=== PATIENT | male | born 2000 | race Caucasian/White ===

== ENCOUNTER 2024-05-26 19:53 | Emergency (ER) | payer MEDICAID, SELFPAY ==
[2024-05-26 20:22] VITALS: BP 112/73; PULSE 71; RESP 18; TEMP 36.2; O2SAT 97; BMI 24.6
--- NOTE | 2024-05-26 20:25 | CRLHL7_ITS ---
For Patients: As a result of the Century Cures Act, medical imaging exams and procedure reports are released immediately into your electronic medical record. You may view this report before your referring provider. If you have questions, please contact your health care provider. INDICATION: Patient ate a sock. COMPARISON: CT scan 08/14/2018. FINDINGS: There are numerous air distended loops of small bowel throughout the abdomen and pelvis. There is some air within the colon and rectum. These findings are consistent an incomplete small bowel obstruction. There is no free air under the diaphragm. The visualized lung bases are clear. There is a ventriculoperitoneal shunt tube in place. IMPRESSION: There is likely an incomplete small bowel obstruction. Dictated by Emmett Morgan MD @ 05/26/2024 9:28:44 PM (Electronically Signed)
--- NOTE | 2024-05-26 20:42 | ED_ITS ---
HPI - General Adult General Time Seen by Provider: 20:42 Date Seen: 05/26/24 Chief complaint: Unspecified Complaint, Adult Stated complaint: possibly swallowed part of sock Time Seen by Provider: 05/26/24 20:33 Source: patient, RN notes reviewed and old records reviewed Mode of arrival: ambulatory Limitations: no limitations History of Present Illness HPI narrative: 24-year-old male with developmental delay, presents today with diarrhea and concern for ingestion. Patient has been known the threads of his socks. Today has had watery stools with threads in it, abdominal distension although that is improving. No vomiting, patient did eat dinner tonight without problems. No fever, no change in behavior otherwise. PFSH PFSH Social History Smoking Status: Never smoker Do you use any of these nicotine containing products: None How often do you have a drink containing alcohol: never AUDIT-C Alcohol total score: 0 Non-prescribed substance use: denies use service: No Exam Narrative: Exam Narrative: General: Well-developed and well-nourished, no acute distress Head: Atraumatic and normocephalic Eyes: Pupils are equal reactive, extraocular motions intact, conjunctiva clear ENT: External nose and ears are normal, posterior pharynx without erythema or exudate Neck: No midline cervical tenderness, full spontaneous range of motion the neck, trachea midline, no adenopathy Heart: Regular rate and rhythm no murmurs or thrills Lungs: Clear to auscultation bilaterally without wheezes or crackles Abdomen: Soft, nontender, mild distention, active bowel sounds, numerous scars Musculoskeletal: No tenderness, deformity, or edema Neurologic: Awake, alert,, no gross focal neurologic deficits, cranial nerves intact as tested Psych: Mood and affect are appropriate Skin: No rashes Const: Vital Signs, click to edit/add: Vital Signs - 24 hr 05/26/24 20:22 Temperature 97.2 F L Pulse Rate [Right Pulse Oximeter] 71 Respiratory Rate 18 Blood Pressure [Ri ght Upper Arm] 112/73 Pulse Oximetry 97 Oxygen Delivery Me thod Room Air Course Course ED Course: Patient seen and examined. Concern for possible ingested foreign body based on diarrhea and visible strings in stool. On exam, patient appears comfortable, no abdominal tenderness, no vomiting and ate shortly prior to coming the emergency department. No clinical evidence for obstruction, tolerating oral intake. X- ray ordered to evaluate for obstruction, this is clinically unlikely and if x- rays negative, anticipatory guidance given. Reevaluation(s) Time of Reevaluation #1: 21:03 Reevaluation #1: Abdominal x-ray independently interpreted by me with what appears to be an obstructive gas pattern. Labs and CT scan are ordered to further evaluate cause obstruction given multiple abdominal surgeries in the past. Time of Reevaluation #2: 21:56 Reevaluation #2: Reviewed radiology interpretation of CT scan which does demonstrate small- bowel obstruction but no definite transition point, however notes that loops of the SEWER AND DRAIN TECHNICIAN shunt are wrapped around multiple loops of small bowel left upper quadrant which are concerning for cause for mechanical obstruction. Due to possible complication with the SEWER AND DRAIN TECHNICIAN shunt, patient will need to be transferred for further evaluation and treatment Time of Reevaluation #3: 22:30 Reevaluation #3: Care discussed with [facility] transfer [facility], initial discussion of transfer to [facility] due to no beds at [facility]. Discussed with Dr. Banegas, neurosurgery, feels this patient cannot be appropriately taken care of at [facility] and needs to go to [facility]. Additional Reevaluation(s): 23:[address] Morrison, hospitalist at [facility] who accepts patient but does request general surgery consult. Vital Signs Vital signs: Initial Vital Signs Temperature 97.2 F L 05/26/24 20:22 Temperature Source Temporal Artery Scan 05/26/24 20:22 Pulse Rate 71 05/26/24 20:22 Pulse Rhythm Regular 05/26/24 20:22 Respiratory Rate 18 05/26/24 20:22 Blood Pressure 112/73 05/26/24 20:22 Blood Pressure Mean 86 05/26/24 20:22 Blood Pressure Position Sitting 05/26/24 20:22 Pulse Oximetry 97 05/26/24 20:22 Oxygen Delivery Method Room Air 05/26/24 20:22 Vital Signs Temperature 97.2 F L 05/26/24 20:22 Pulse Rate 71 05/26/24 20:22 Respiratory Rate 18 05/26/24 20:22 Blood Pressure 112/73 05/26/24 20:22 Pulse Oximetry 97 05/26/24 20:22 Oxygen Delivery Method Room Air 05/26/24 20:22 Temperature 97.2 F L 05/26/24 20:22 Pulse Rate 71 05/26/24 20:22 Respiratory Rate 18 05/26/24 20:22 Blood Pressure 112/73 05/26/24 20:22 Pulse Oximetry 97 05/26/24 20:22 Oxygen Delivery Method Room Air 05/26/24 20:22 Discharge Plan Discharge Clinical Impression: Suspected ingested foreign body not found after observation, SBO (small bowel obstruction), SEWER AND DRAIN TECHNICIAN (ventriculoperitoneal) shunt status Follow Up/Referrals: Joshua Wilde MD [Primary Care Provider] -
--- OUTSIDE RECORDS SUMMARY | 2024-05-26 21:00 | XMS_ITS | Clinical Summary ---
Author Organization [employer] [facility] Address [place], [place] [address] Care Team Providers Care Pattern Chain Builder Name Role Phone Joshua Wilde MD Primary Care Provider Allergies Active Allergy Reactions Criticality Noted Date Comments Lorazepam *Unknown,Agitation 09/12/2016 Other reaction(s): Other (see comments) Opposite reaction Brompheniramine-Codeine Other - Describe In Comment Field 02/13/2012 Opposite reaction Codeine Anxiety 12/16/2010 Haloperidol *Unknown 09/12/2016 Other reaction(s): Other (see comments) Opposite reaction Morphine Hives 12/16/2010 Sulfate Salt *Unknown 01/20/2017 Other reaction(s): Other (see comments) Opposite reaction Midazolam *Unknown 01/20/2017 Other reaction(s): extreme agitation Other reaction(s): Other (see comments) Opposite reaction Medications Medication Sig Dispensed Refills Start Date End Date Status Diazepam (DIASTAT ACUDIAL) 12.5-15-17.5-20 mg kitIndications:Sei zure disorder (HC) Insert 20 mg rectally one time if needed for Seizures. 1 Kit 2 0 Active levOCARNitine (CARNITOR) 330 mg tablet 2 Active lamoTRIgine (LAMICTAL) 100 mg tablet Take 1 Tablet by mouth in the morning and 1 Tablet in the evening. 2 Active lamoTRIgine (LAMICTAL) 25 mg tablet Take 1 Tablet by mouth in the morning and 1 Tablet in the evening. 2 Active loperamide (IMODIUM) 2 mg tablet Take 1-2 Tablets by mouth 4 times daily if needed. Active milk of magnesia (MOM) 400 mg/5 mL suspension Take 60 mL by mouth once daily if needed. Active ondansetron (ZOFRAN ODT) [address] 1 Tablet on the tongue 3 times daily if needed. Active ibuprofen (ADVIL; MOTRIN) 200 mg tablet Take 1-2 Tablets by mouth every 4 hours if needed. Active sodium fluoride dental 1.1 % gel 2 Active bisacodyL (DULCOLAX) 10 mg suppositoryIndicat ions:Chronic constipation INSERT 1 SUPPOSITORY PER RECTUM EVERY 4 DAYS NEEDED 24 Suppository 2 2 Active divalproex (DEPAKOTE) 125 mg Delayed-Release tabletIndications: Irritability Take 7 tablets twice daily 0 3 Active triamcinolone (ARISTOCORT; KENALOG) 0.1 % creamIndications:K eratoderma Apply a thin layer to the feet twice daily on the weekends, Monday and monday 80 g 4 Active eszopiclone (LUNESTA) 3 mg tabletIndications: Insomnia, unspecified type Take 1 Tablet (3 mg) by mouth at bedtime. 30 Tablet 5 4 Active glycopyrrolate (ROBINUL) 1 mg tabletIndications: Sialorrhea Take 1 Tablet (1 mg) by mouth three times daily. 90 Tablet 5 4 Active propranoloL (INDERAL) 40 mg tabletIndications: Impulse control disorder in adult Take 2.5 Tablets (100 mg) by mouth three times daily. 225 Tablet 5 4 Active risperiDONE (RISPERDAL) 0.25 mg tabletIndications: Impulse control disorder in adult TAKE 1 TABLET BY MOUTH EVERY MORNING ALONG WITH 1MG TO =1.25MG;TAKE 2 TABLETS BY MOUTH DAILY IN AFTERNOON ALONG WITH 1MG TO = 1.50MG 90 Tablet 5 4 Active risperiDONE (RISPERDAL) 1 mg tabletIndications: Impulse control disorder in adult Take 1 Tablet (1 mg) by mouth three times daily. 90 Tablet 5 4 Active emollient (Eucerin Advanced Repair Foot) cream Apply topically to affected area(s) once daily if needed for Dry Skin. Active selenium sulfide (Anti-Dandruff) 1 % Apply topically to affected area(s) once daily. Head and Shoulders shampoo: Every week once a day on Monday, Monday and Monday Active acetaminophen (TYLENOL EXTRA STRGTH) 500 mg tablet Take 1,000 mg by mouth every 6 hours if needed. Cold/discomfort from colds/sore throat. Give 2 tablets q 6 hoursprn for fever or discomfort. Max acetaminophen dose: 3000mg in 24 hrs. Active menthol (COUGH DROPS MM) Apply to the lining of the mouth every 2 hours if needed. colds/discomfort from colds/sore throat for cough or sore throat. Active diazePAM CONCENTRATE (DIAZEPAM INTENSOL) 5 mg/mL solution Take 5 mg by mouth every 8 hours if needed. this medication is given at the work program only per guardians request!!!!!! Give 2 ml (10 mg) inside cheek for seizure lasting longer than 3 minutes or for cluster of seizures - may repeat once after 10 minutes if needed, max 4 ml per 24 hours. Active ibuprofen (ADVIL; MOTRIN) 600 mg tabletIndications: Pain, dental Take 1 Tablet (600 mg) by mouth every 6 hours if needed for Pain for up to 20 doses. Maximum of 3200 mg in 24 hours. 20 Tablet 4 Active ALPRAZolam (XANAX) 1 mg tabletIndications: Anxiety TAKE UP TO 2 TABS BY MOUTH ONCE DAILY NEEDED PRIOR TO DENTAL PROCEDURES 2 Tablet 2 4 Active risperiDONE (RISPERDAL) 0.25 mg tabletIndications: Impulse control disorder in adult TAKE 1 TABLET BY MOUTH EVERY MORNING ALONG WITH 1MG TO =1.25MG;TAKE 2 TABLETS BY MOUTH DAILY IN AFTERNOON ALONG WITH 1MG TO = 1.50MG 90 Tablet 5 3 Discontinu ed(Reorder (E-cancel not sent)) Active Problems Problem Noted Date Diagnosed Date Sialorrhea 01/31/2024 Impulse control disorder in adult 01/31/2024 Atopic dermatitis 01/27/2023 Overview (01/27/2023): followed by Derm Hyponatremia 03/10/2021 Hydrocephalus 01/06/2021 Insomnia 05/04/2017 Seizure disorder 05/20/2011 ADHD (attention deficit hyperactivity disorder) 05/20/2011 Autism spectrum disorder 05/20/2011 Resolved Problems Problem Noted Date Diagnosed Date Resolved Date Impulse control disorder 06/12/201812/2023 Behavioral and emotional dis order with onset in childhood 12/14/2016 01/31/2024 Encounters Date Type Department Care Team Description 05/06/2024 Refill [facility] [address] [place] [address] Aaliyah Bonilla PA Refill Request (Triamcinolon) 04/24/2024 Refill [facility] [address] [place] [address] Aaliyah Bonilla PA Refill Request (Triamcinolon 0.1 PCT cre) 04/16/2024 Refill [facility] [address] [place] [address] Aaliyah Bonilla PA Refill Request (Triamcinolon 0.1) 03/12/2024 Refill [facility] [address] [place] [address] Joshua Wilde MD Refill Request (Alprazolam) 03/11/2024 7:40 AM CDT Anesthesia Event [address] [address] Cathy Sparrow CRNA Davis, Leigh Ann, CRNA 03/11/2024 7:30 AM CDT - 03/11/2024 11:45 AM CDT Surgery [address] [address] Aubrie Arevalo DDS COMPREHENSIVE EXAM, FULL MOUTH RADS, DENTAL CLEANING, RESTORATIVE WORK, 10 FILLINGS, AND 1 EXTRACTION 03/11/2024 6:56 AM CDT - 03/11/2024 1:00 PM CDT Hospital Encounter [facility] [address] [place] [address] Aubrie Arevalo DDS Pain, dental (Primary Dx) Discharge Disposition: Home Self Care 03/11/2024 Travel 03/06/2024 Telephone [facility] [address] [place] [address] Joshua Wilde MD Medication Management 03/05/2024 Telephone [facility] [address] [place] [address] Joshua Wilde MD Questions from Last 3 Months Immunizations Name Administration Dates Next Due COVID-19 vaccine (Moderna 100mcg/0.5mL) PF, MDV 08/19/2020,07/22/2020 DTaP 05/05/2003, 0,03/11/1999,10/23 DTaP-HIB (TriHIBIT) 06/16/1999 HIB HbOC (HibTITER) 06/16/1999,03/11/1999,1998 HIB PRP-T (ActHIB,Hiberix) 03/11/1999,1998 Hepatitis A (Peds) 11/05/2009,03/23/2009 Hepatitis B (Peds) 06/16/1999,03/11/1999, 999 Hib Conjugate, Unspecified 03/11/1999,1998 Inactivated Polio Vaccine 05/05/2003,,03/11/1999,10/23 Influenza A (H1N1), Inactivated 04/28/2009 Influenza Virus, Unspecified 04/19/2011,05/03/20 10 Influenza, IIV3 (Age >=3 years) 07/02/19 13,03/23/2009,04/04/2008,04/11,07/18/2006,05/05/2003 Influenza, IIV4 04/16/2018 Influenza, IIV4 (=>6mos) MDV 03/30/2020,05/08/20 19,03/29/2017 MMR 05/05/2003,09/11/1999 Meningococcal Vaccine 12/03/2014,03/23/2009 Polio Virus, Unspecified 03/13/2000,03/11/1999,0 1998 Rotavirus Pentavalent (ROTATEQ) 1998 Tdap 01/01/2020,03/23/2009 Varicella Vaccine 04/10/2006,09/11/1999 Family History Medical History Relation Name Comments Alcoholism Father Diabetes type II Father Anesthesia Problem Mother slow to c ome out of anesthesia Cancer-colon No Family History Cancer-prostate No Family History Heart Disease No Family History Relation Name Status Comments Father Mother Social History Tobacco Use Types Packs/Day Years Used Date Smoking Tobacco: Never Smokeless Tobacco: Never Tobacco Cessation:Counseling Given: No Comments:no passive exposure Alcohol Use Standard Drinks/Week Comments No 0 (1 standard drink = 0.6 oz pur e alcohol) PHQ-2 Answer Date Recorded PHQ-2 TOTAL SCORE 0 07/26/2023 Social Connections Answer Date Recorded Frequency of Communication with Friends and Fami ly Not on file 10/19/2022 Financial Resource Strain Answer Date R ecorded Difficulty of Paying Living Expenses 3 10/14/2021 Difficulty of Paying Living Expenses Not on file 10/14/2021 Food Insecurity Answer Date Recorded Worried About Running Out of Food in the Last Ye ar 1 10/14/2021 Transportation Needs Answer Date Record ed Lack of Transportation (Medical) 1 10/14/2021 Housing Stability Answer Date Recorded Unable to Pay for Housing in the Last Year 1 10/14/2021 Sex and Gender Information Value Date Recorded Sex Assigned at Not on file Gender Identity Not on file Sexual Orientation Not on file Obstetrics History Last Filed Vital Signs Vital Sign Reading Time Taken Comments Blood Pressure 136/71 03/11/2024 11:45 AM CDT Pulse 78 03/11/2024 11:45 AM CDT Temperature 36.7 C (98 F) 03/11/2024 11:15 AM CDT Respiratory Rate 18 03/11/2024 11:45 AM CDT Oxygen Saturation 98% 03/11/2024 11:45 AM CDT Inhaled Oxygen Concentration - - Weight 55.3 kg (122 lb) 03/11/2024 7:18 AM CDT Height 154.9 cm (5' 1) 03/11/2024 7:18 AM CDT Body Mass Index 23.05 03/11/2024 7:18 AM CDT Plan of Treatment Upcoming Encounters Date Type Department Care Team (Late st Contact Info) Description 06/27/2024 10:30 AM INSPECTOR RAG [employer]ORTING Office Visit [facility] [address] [place] [address] [place] [address] Aaliyah Bonilla PA [address] [place] [address] 08/07/2024 10:15 AM INSPECTOR [employer]AG [employer]ING Office Visit [facility] [address] [place] [address] Torie Gómez MD [address] [place] [address] Health Maintenance Due Date Last Done Comments HPV series for age 9-26 (1 - Male 3-dose series) 2013 COVID-19 vaccine series (2023- season) 2024 05/04/2023, 06/15/2022, 07/13/2021, Additional history exists Influenza for age 9-49 02/25/2024 , 05/08/2019, 04/16/2018, Additional history exists BMI (ht and wt on same day) for age 18+ 02/14/2025 02/15/2024, 02/06/2024, 01/27/2023, Additional history exists Tetanus booster 12/31/2029 01/01/2020, 03/23/2009 Tdap Completed 01/01/2020, 03/23/2009 HIV for age 15-65 Completed 02/01/2023 Hepatitis C screening for age 18-79 Completed 02/01/2023 Pneumococcal series for age 6-64 Aged Out No longer eligible based on patient's age to complete this topic Procedures Procedure Name Priority Date/Time Associated Diagnosis Comments ENDOTRACHEAL TUBE Routine 03/11/2024 8:0 7 AM CDT SYNAGOGUE DENTAL WITH XRAY 03/11/2024 7:40 AM CDT Dental disease Developmental disability LC HIV-1/O/2, 4TH GENERATION Routine 02/01/2023 11:40 AM CDT Screening for HIV (human immunodeficiency virus) LC HCV ANTIBODY RFX TO QUANT PCR Routine 02/01/2023 11:40 AM CDT Need for hepatitis C screening test from Last 3 Months or Most Recently Relevant to Health Maintenance Results * HCHG TUBE TRACH PR1 (03/11/2024 8:07 AM CDT) Narrative Cathy Sparrow CRNA - 03/11/2024 8:07 AM CDT Cathy Sparrow CRNA 03/11/2024 8:08 AM Procedure: ETT Patient location during procedure: OR ETT Properties Mask Ventilation: easy Final Technique: direct laryngoscopy Type: DARIO Location: left nare Cuffed: yes Tube Size: 6.0 mmno Laryngoscope Blade: Mac Blade Size: 3 Cormack-Lehane Grade View: 1 Insertion Attempts: 1 Placement Verification: auscultation and end tidal CO2 Assessment: pharynx clear Secured at: bend Difficulty: 0 (not difficult) Cathy Sparrow CRNA ANESTHESIA PX NOTE ORDERABLES * LC HCV ANTIBODY RFX TO QUANT PCR (02/01/2023 11:40 AM CDT) Pathologist [facility] HCV Ab Non Reactive Non Reactive 02/04/2023 7:17 AM CDT [facility]) Blood BLOOD SPECIMEN / Unknown Butterfly / Unknown 02/01/2023 11:40 AM CDT 02/01/2023 11:45 AM CDT Narrative [facility] ([facility] - 02/04/2023 7:17 AM CDT Performed at: [address] [place] [id number] Manager Mobility: Kevan Benitez MD, Phone: [phone] Joshua Wilde MD LABORATORY [facility] ([facility]) [address] [place] [address], * LC HIV-1/O/2, 4TH GENERATION (02/01/2023 11:40 AM CDT) Pathologist [facility] HIV Scr 4th Gen Non Reactive Non Reactive 02/04/2023 5:13 AM CDT [facility] Comment: HIV Negative HIV-1/HIV-2 antibodies and HIV-1 p24 antigen were NOT detected. There is no laboratory evidence of HIV infection. Blood BLOOD SPECIMEN / Unknown Butterfly / Unknown 02/01/2023 11:40 AM CDT 02/01/2023 11:45 AM CDT Narrative [facility] - 02/04/2023 5:13 AM CDT Performed at: [address] [id number] Manager Mobility: Kevan Benitez MD, Phone: [phone] Joshua Wilde MD LABORATORY [facility] ([facility]) [facility] [place], [place] [address] from Last 3 Months or Most Recently Relevant to Health Maintenance Advance Directives * Full Code (Latest Code Status on File) Date Activated Date Inactivated Comments 03/11/2024 7:17 AM 03/11/2024 4:14 PM Question Answer Comments Code Status Discussion: Reviewed Preferences Care Teams Pattern Chain Builder Relationship Specialty Start Date End Date Joshua Wilde MD [address] [place] [address] PCP - General Family Practice 12/16/16
--- NOTE | 2024-05-26 21:24 | CRLHL7_ITS ---
For Patients: As a result of the Century Cures Act, medical imaging exams and procedure reports are released immediately into your electronic medical record. You may view this report before your referring provider. If you have questions, please contact your health care provider. Indication: Concern for SBO on radiograph Technique: Noncontrast CT through the abdomen and pelvis with multiplanar reformats. Comparison: Send a radiograph, CT abdomen pelvis performed 08/14/2018 Findings: Examination is degraded by motion. Lower chest: No acute abnormality appreciated. Hepatobiliary: No significant parenchymal abnormality is appreciated. Spleen: Unremarkable. Pancreas: No acute abnormality appreciated. Adrenal glands: No acute abnormality appreciated. Kidneys: No significant parenchymal abnormality appreciated. No visualized calculi. No hydronephrosis. Bowel: Dilated loops of small bowel measure up to 4.8 centimeters suspicious for obstruction. Limited evaluation for transition point due to motion degradation and absence of contrast. There are loops of a FAT PURIFICATION WORKER shunt wrapped around multiple loops of small bowel in the left upper quadrant. Vascular: Poorly evaluated on this noncontrast examination. Lymph nodes: No gross lymphadenopathy. Peritoneum: FAT PURIFICATION WORKER shunt present. : No acute abnormality appreciated. Soft tissues: No acute abnormality appreciated. Postoperative changes. Bones: No acute fracture. No lytic or blastic lesion. Impression: Examination is degraded by motion and suboptimal due to the absence of IV contrast. There are dilated loops of small bowel measuring up to 4.8 centimeters suspicious for small bowel obstruction, but evaluation for a focal transition point is severely degraded. Note is made of loops of patient`s FAT PURIFICATION WORKER shunt wrapped around multiple loops of small bowel in the left upper quadrant which could be causing a mechanical obstruction. Please note that all CT scans at this facility use dose modulation, iterative reconstruction, and/or weight-based dosing when appropriate to reduce radiation dose to as low as reasonably achievable. Dictated by Jose Sands MD @ 05/26/2024 9:54:46 PM (Electronically Signed)
[2024-05-26 23:40] LABS: Chloride* 101 mmol/L (96-114); Potassium* 3.7 mmol/L (3.6-5.1); Sodium* 134 mmol/L (135-149)
[2024-05-26 23:42] LABS: Creatinine* 0.6 mg/dL (0.5-1.5); Est. Creatinine Clearance* 131.94; Estimated Glomerular Filt Rate 137 ml/min
[2024-05-26 23:43] LABS: Anion Gap 14 mEq/L (7-15); Blood Urea Nitrogen* 20 mg/dL (5-24); Calcium* 9.6 mg/dL (8.4-10.6); Carbon Dioxide* 19 mmol/L (20-32); Glucose* 113 mg/dL (60-115)
--- NOTE | 2024-05-27 01:32 | ED.NURSE ---
pt ambulated to restroom with mother.
[2024-05-27 02:00] VITALS: BP 141/83; PULSE 79; RESP 18; TEMP 37.2; O2SAT 99
--- NOTE | 2024-05-27 03:14 | ED.NURSE ---
Report given to Brandy Ko. Room will be ready by 7am. Ok to send then per RN.
--- NOTE | 2024-05-27 03:43 | ED.NURSE ---
mother and patient out of room to walk.
--- NOTE | 2024-05-27 04:21 | ED.NURSE ---
mother and son back in room
--- NOTE | 2024-05-27 06:16 | ED.NURSE ---
Report given to Brandy [facility] unit Room 4558. Paper sent with mother. Pt arriving to [facility] with mother via private vehicle. Information also given to DON [facility], Nancie Ruby Rn. She was informed that pt is being taken to [facility] unit 4500 room 4558.
[2024-05-27 06:30] VITALS: BP 139/89; PULSE 79; RESP 16; TEMP 36.6; O2SAT 97
--- NOTE | 2024-05-27 06:36 | ED.NURSE ---
Nancie Zamora, DON [facility], informed pt is leaving for [facility].
== END 2024-05-27 06:47 | disposition short-term general hospital (02) ==
PROVIDERS: Emergency Provider Family Medicine; PCP Family Medicine
DX: K56.609 Unspecified intestinal obstruction, unspecified as to partial versus complete obstruction (principal); Z98.2 Presence of cerebrospinal fluid drainage device
CPT/HCPCS: 36415; 74019; 74176; 80048; 83735; 99285

== ENCOUNTER 2025-04-04 17:20 | Emergency (ER) | payer MEDICAID, SELFPAY ==
--- OUTSIDE RECORDS SUMMARY | 2025-04-04 17:22 | XMS_ITS | Clinical Summary ---
Author Organization [facility] Address [address] [place] [id number] Care Team Providers Care Special Education Resource Teacher Name Role Phone Joshua Wilde MD Primary [...] reaction(s): Other (see comments) Opposite reaction Medications Diazepam (DIASTAT ACUDIAL) 12.5-15-17.5-20 mg kitIndications:Se izure disorder (HC) Insert 20 mg rectally one time if needed for Seizures. 1 Kit 2 020 Active levOCARNitine (CARNITOR) 330 mg tablet Take 330 mg by mouth three times daily with meals. 022 Active lamoTRIgine (LAMICTAL) 100 mg tablet Take 1 Tablet by mouth two times daily. Take with two 25 mg tablets (total dose = 150 mg) twice daily. 022 Active lamoTRIgine (LAMICTAL) 25 mg tablet Take 50 mg by mouth two times daily. Take with one 100 mg tablet (total dose = 150 mg) twice daily. 022 Active milk of magnesia (MOM) 400 mg/5 mL suspension Take 60 mL by mouth once daily if needed. Active ondansetron (ZOFRAN ODT) [address] 1 Tablet on the tongue 3 times daily if needed. Active ibuprofen (ADVIL; MOTRIN) 200 mg tablet Take 1-2 Tablets by mouth every 4 hours if needed. Active sodium fluoride dental 1.1 % gel Apply to teeth two times daily. Active triamcinolone (ARISTOCORT; KENALOG) 0.1 % creamIndications: Keratoderma Apply a thin layer to the feet twice daily on the weekends, Monday and monday 80 g Active emollient (Eucerin Advanced Repair Foot) cream Apply topically to affected area(s) every Monday, Monday and Monday. To ball / bottom of feet. MWF at 8 PM Active selenium sulfide (Anti-Dandruff) 1 % Apply topically to affected area(s) every Monday, Monday and Monday. Head and Shoulders shampoo: Every week once [...] max 4 ml per 24 hours. Active divalproex sprinkles (DEPAKOTE SPRINKLES) 125 mg capsule Take 750 mg by mouth two times daily. Active bisacodyL (DULCOLAX) 10 mg suppositoryIndica tions:Chronic constipation INSERT 1 SUPPOSITORY PER RECTUM EVERY DAY NEEDED 24 Suppository 2 Active urea 40 % creamIndications: Keratoderma Apply a thin layer to the thickened areas on the feet 3-4 times weekly as tolerated 80 g 1 025 Active polyethylene glycoL 17 gram/scoop powderIndications :Small bowel obstruction (HC) Mix 1 scoop (17 g) in liquid then take by mouth two times daily. 1020 g 5 025 Active risperiDONE (RISPERDAL) 0.25 mg tabletIndications :Impulse control disorder in adult TAKE 1 TABLET BY MOUTH EVERY MORNING ALONG WITH 1MG TO =1.25MG;TAKE 2 TABLETS BY MOUTH DAILY IN AFTERNOON ALONG WITH 1MG TO = 1.50MG 84 Tablet 6 025 Active risperiDONE (RISPERDAL) 1 mg tabletIndications :Impulse control disorder in adult TAKE 1 TABLET BY MOUTH 3 TIMES DAILY 84 Tablet 6 025 Active eszopiclone (LUNESTA) 3 mg tabletIndications :Insomnia, unspecified type Take 1 Tablet (3 mg) by mouth at bedtime. 30 Tablet 5 025 Active sennosides-docusa te (Stimulant Laxative Plus) (8.6-50 mg) tabletIndications :Chronic constipation Take 1 Tablet by mouth two times daily. 56 Tablet 12 025 Active ALPRAZolam (XANAX) 1 mg tabletIndications :Anxiety TAKE UP TO 2 TABLETS BY MOUTH ONCE DAILY NEEDED PRIOR TO DENTAL PROCEDURES 2 Tablet 2 025 Active propranoloL 40 mg tabletIndications :Impulse control disorder in adult TAKE 2&1/2 TABLETS BY MOUTH THREE TIMES DAILY 675 Tablet 025 Active risperiDONE (RISPERDAL) 0.25 mg tabletIndications :Impulse control disorder in adult TAKE 1 TABLET BY MOUTH EVERY MORNING ALONG WITH 1MG TO =1.25MG;TAKE 2 TABLETS BY MOUTH DAILY IN AFTERNOON ALONG WITH 1MG TO = 1.50MG 90 Tablet 5 023 Disconti nued(Reo rder (E-cance l not sent)) Active Problems Problem Noted Date Diagnosed Date S/P ventriculoperitoneal shunt 05/29/2024 Sialorrhea 01/31/2024 Impulse control disorder in adult 01/31/2024 Atopic dermatitis 01/27/2023 Overview (01/27/2023): followed by Derm Hyponatremia 03/10/2021 Hydrocephalus 01/06/2021 Insomnia 05/04/2017 Seizure disorder 05/20/2011 ADHD (attention deficit hyperactivity disorder) 05/20/2011 Autism spectrum disorder 05/20/2011 Resolved Problems Problem Noted Date Diagnosed Date Resolved Date Small bowel obstruction 05/27/202401/24 Impulse control disorder 06/12/201812/2023 Behavioral and emotional dis order with onset in childhood 12/14/2016 01/31/2024 Encounters Date Type Department Care Team Description 02/20/2025 Refill [facility] [address] [place] [address] Joshua Wilde MD Refill Request (Propranolol) 02/12/[address] [address] Joshua Wilde MD Refill Request (Alprazolam) 02/06/2025 11:00 AM CDT Office Visit [address] [address] Joshua Wilde MD Physical (24 year old) 02/06/2025 Travel 02/03/[address] [address] Torie Gómez MD Late Cancel Appointment 01/27/[address] [address] Torie Gómez MD Refill Request (Eszopiclone Tab 3mg ) 01/22/[address] [address] Torie Gómez MD Refill Request (Risperidone, Risperidone) 01/06/[address] [address] Torie Gómez MD from Last 3 Months Immunizations Immunization Administration Dates Next Due COVID-19 vaccine (Moderna 100mcg/0.5mL) ROBERT REYES 08/19/2020,07/22/2020 DTaP 05/05/2003, 0,03/11/1999,10/23 DTaP-HIB (TriHIBIT) 06/16/1999 HIB HbOC (HibTITER) 06/16/1999,03/11/1999,1998 HIB PRP-T (ActHIB,Hiberix) 03/11/1999,1998 Hepatitis A (Peds) 11/05/2009,03/23/2009 Hepatitis B (Peds) 06/16/1999,03/11/1999, 999 Hib Conjugate, Unspecified 03/11/1999,1998 INFLUENZA, IIV3 PF (AGE >= 6 MO) 04/17/2024 Inactivated Polio Vaccine 05/05/2003,,03/11/1999,10/23 Influenza A (H1N1), [...] 0 07/26/2023 Social Connections Answer Date Recorded Do you often feel lonely or isolated from those around you? 0 05/27/2024 Financial Resource Strain Answer Date R ecorded Difficulty of Paying Living Expenses 3 05/27/2024 Difficulty of Paying Living Expenses Not on file 05/27/2024 Food Insecurity Answer Date Recorded Do you worry your food will run out before you are able to buy more? 1 05/27/2024 Transportation Needs Answer Date Record ed Does lack of transportation keep you from medica l appointments? 1 05/27/2024 Does lack of transportation keep you from work, meetings or getting things that you need? 1 05/27/2024 Housing Stability Answer Date Recorded What is your housing situation today? 1 05/27/2024 Interpersonal Safety Answer Date Record ed Are you being hit, kicked, p ushed or yelled at (see row info)? Unable to assess due to chronic condition 05/27/2024 Interpersonal Safety Abuse 12 - 18 Not on file 05/27/2024 Interpersonal Safety Ambulat ory Vulnerability Not on file 05/27/2024 Utilities Answer Date Recorded Do you have trouble paying f or utilities (for example, heat, electricity, water, phone)? 1 05/27/2024 Sex and Gender Information Value Date Recorded Sex Assigned at Not on file Legal Sex Male 8:10 AM HOME SERVICE DIRECTOR Gender Identity Not on file Sexual Orientation Not on file Obstetrics History Last Filed Vital Signs Vital Sign Reading Time Taken Comments Blood Pressure 111/66 02/06/2025 11:12 AM CDT Pulse 73 02/06/2025 11:12 AM CDT Temperature 36.7 C (98.1 F) 05/31/2024 7:00 AM HOME SERVICE DIRECTOR Respiratory Rate 20 05/31/2024 7:00 AM HOME SERVICE DIRECTOR Oxygen Saturation 98% 02/06/2025 11:12 AM CDT Inhaled Oxygen Concentration - - Weight 52.3 kg (115 lb 6.4 oz) 02/06/2025 11:12 AM CDT Height 154.9 cm (5' 1) 02/06/2025 11:12 AM CDT Body Mass Index 21.8 02/06/2025 11:12 AM CDT Plan of Treatment Upcoming Encounters Date Type Department Care Team (Late st Contact Info) Description 04/16/2025 1:15 PM CDT Office Visit [facility] [address] [place] [address] Torie Gómez MD [address] [place] [address] 02/09/2026 11:45 AM CDT Office Visit [facility] [address] [place] [address] Joshua Wilde MD [address] [place] [address] Health Maintenance Due Date Last Done Comments Influenza Vaccine (#1) 2025 , 03/30/2020, 05/08/2019, Additional history exists HPV series for age 9-45 (1 - 3-dose SCDM series) 2025 BMI (ht and wt on same day) for age 18+ 02/06/2026 02/06/2025, 02/15/2024, 02/06/2024, Additional history exists Tetanus booster 12/31/2029 01/01/2020, 03/23/2009 RSV vaccine for adults or (1 - 1-dose 75+ series) 2073 Hepatitis B series for 19+ Completed 06/16, 03/11/1999, 1998 HIV for age 15-65 Completed 02/01/2023 Hepatitis C screening for age 18-79 Completed 02/01/2023 COVID-19 vaccine series Completed 05/01/20 24, 05/04/2023, 06/15/2022, Additional history exists Pneumococcal series for age 6-49 Aged Out No longer eligible based on patient's age to complete this topic Procedures Procedure Name Priority Date/Time Associated Diagnosis Comments LC HIV-1/O/2, 4TH GENERATION Routine 02/01/2023 11:40 AM CDT Screening for HIV (human immunodeficiency virus) LC HCV ANTIBODY RFX TO QUANT PCR Routine 02/01/2023 11:40 AM CDT Need for hepatitis C screening test from Last 3 Months or Most Recently Relevant to Health Maintenance Results * LC HCV ANTIBODY RFX TO QUANT PCR (02/01/2023 11:40 AM CDT) Pathologist [facility] HCV Ab Non Reactive Non Reactive 02/04/2023 7:17 AM CDT [facility] ([facility]) Blood BLOOD SPECIMEN / Unknown Butterfly / Unknown 02/01/2023 11:40 AM CDT 02/01/2023 11:45 AM CDT Narrative [facility] ([facility]) - 02/04/2023 7:17 AM CDT Performed at: [address] [place] [id number] [employer] Supervisor: Kevan Benitez MD, Phone: [phone] us Joshua Wilde MD LABORATORY Final Result [facility] ([facility]) [address] [place] [address], * LC HIV-1/O/2, 4TH GENERATION (02/01/2023 11:40 AM CDT) Pathologist [facility] HIV Scr 4th Gen Non Reactive Non Reactive 02/04/2023 5:13 AM CDT [facility] ([facility]) Comment: HIV Negative HIV-1/HIV-2 antibodies and HIV-1 p24 antigen were NOT detected. There is no laboratory evidence of HIV infection. Blood BLOOD SPECIMEN / Unknown Butterfly / Unknown 02/01/2023 11:40 AM CDT 02/01/2023 11:45 AM CDT Narrative [facility] ([facility]) - 02/04/2023 5:13 AM CDT Performed at: [address] [place] [id number] [employer] Supervisor: Kevan Benitez MD, Phone: [phone] Joshua Wilde MD LABORATORY Final Result [facility] ([facility]) [address] [place] [address], from Last 3 Months or Most Recently Relevant to Health Maintenance Insurance MEDICAID MEDICAID Advance Directives * Full Code (Latest Code Status on File) Date Activated Date Inactivated Comments 05/27/2024 11:30 AM 05/31/2024 3:40 PM Question Answer Comments Code Status Discussion: Reviewed Preferences * Full Code Date Activated Date Inactivated Comments 03/11/2024 7:17 AM 03/11/2024 4:14 PM Question Answer Comments Code Status Discussion: Reviewed Preferences Care Teams Special Education Resource Teacher Relationship Specialty Start Date End Date Joshua Wilde MD [address] [place] [address] PCP - General Family Practice 12/16/16
[2025-04-04 17:24] VITALS: PULSE 57; RESP 18; TEMP 36.6; O2SAT 98
--- NOTE | 2025-04-04 17:36 | CRLHL7_ITS ---
For Patients: As a result of the 21st Century Cures Act, medical imaging exams and procedure reports are released immediately into your electronic medical record. You may view this report before your referring provider. If you have questions, please contact your health care provider. Indication: History of small-bowel obstruction, abdominal distention Technique: Noncontrast CT through the abdomen and pelvis with multiplanar reformats. Comparison: CT abdomen and pelvis performed 05/26/2024 Findings: Lower chest: Dilated esophagus. Hepatobiliary: No significant parenchymal abnormality is appreciated. Spleen: Unremarkable. Pancreas: No acute abnormality appreciated. Adrenal glands: No acute abnormality appreciated. Kidneys: No significant parenchymal abnormality appreciated. No visualized calculi. No hydronephrosis. Bowel: Marked dilation of the stomach and proximal portions of the duodenum with a focal transition point as the duodenum traverses anterior to the aorta. Distal to this are additional loops of irregular, dilated, and wall thickened small bowel in the vicinity of the pseudocyst. More distal bowel appears completely decompressed. Vascular: Poorly evaluated on this noncontrast examination. Lymph nodes: No gross lymphadenopathy. Peritoneum: There is a massive fluid collection in the abdomen measuring 17.4 x 13.0 x 10.7 cm. This fluid collection encompasses essentially the entire peritoneal portion of patient`s HELMET HAT PUNCHER shunt hardware. This was not present on the prior study. : No acute abnormality appreciated. Soft tissues: Abandoned right shunt catheter. Left shunt catheter. Bones: No acute fracture. No lytic or blastic lesion. Impression: 1. There is a new mass or fluid collection in the abdomen measuring 17.4 cm which encompasses essentially the entire peritoneal portion of the patient`s HELMET HAT P[employer]CH[employer] shunt hardware most compatible with a new pseudocyst. 2. There are severely irregular areas of bowel including a markedly dilated lower esophagus, stomach, and proximal duodenum, 2 suspected transition points, and dilated bowel with wall thickening involving proximal jejunal loops. Given the pseudocyst the most concerning etiology would be a closed loop obstruction secondary to internal hernia or volvulus with the pseudocyst serving as a lead point. Distal bowel is decompressed. Foci of gas throughout bowel favored to be intraluminal gas due to compression of bowel from the cyst but pneumatosis can not be excluded. Can not assess for hypoperfusion due to the absence of IV contrast. Findings were communicated by telephone to Dr. Dacia Skelton at 2009 on 04/04/2025. Please note that all CT scans at this facility use dose modulation, iterative reconstruction, and/or weight-based dosing when appropriate to reduce radiation dose to as low as reasonably achievable. Dictated by Jose Sands MD @ 04/04/2025 8:16:00 PM (Electronically Signed)
--- NOTE | 2025-04-04 18:25 | ED.GENADULT ---
HPI - General Adult General Chief complaint: Abdominal Pain Stated complaint: Abdominal distension Time Seen by Provider: 04/04/25 17:22 Source: family Limitations: physical limitation History of Present Illness HPI narrative: Patient is a 25-year-old male with significant developmental disabilities, resident of [place], presenting today with abdominal distension. His mother states that she noticed this earlier today. No vomiting. No measured fevers. Did have a bowel movement earlier today. No urinary symptoms that she is aware of. Patient does have a TRAILHEAD CONSTRUCTION WORKER shunt in place and last time he had abdominal distension it was noted that his TRAILHEAD CONSTRUCTION WORKER shunt had wrapped around his small bowel. This did not require surgery to resolve. Related Data Home Medications ?Medication ?Instructions ?Recorded ?Confirmed alprazolam 1 mg tablet mg PO 05/27/24 diazepam 5 mg-7.5 mg-10 mg rectal DE DAILY 05/27/24 kit diazepam 5 mg/mL oral concentrate mg PO 05/27/24 (Diazepam Intensol) divalproex 125 mg capsule,delayed mg PO 05/27/24 release sprinkle eszopiclone 3 mg tablet 3 mg PO QPM PRN 05/27/24 04/04/25 glycopyrrolate 1 mg tablet mg PO 05/27/24 ibuprofen 600 mg tablet 1,200 mg PO BID 05/27/24 04/04/25 lamotrigine 100 mg tablet 100 mg PO BID 05/27/24 04/04/25 lamotrigine 25 mg tablet mg PO BID 05/27/24 levocarnitine 330 mg tablet 330 mg PO 3XD 05/27/24 04/04/25 ondansetron HCl 4 mg tablet 4 mg PO Q6H 05/27/24 04/04/25 propranolol 40 mg tablet mg PO 05/27/24 risperidone 0.25 mg tablet mg PO 05/27/24 risperidone 1 mg tablet mg PO 05/27/24 Allergies Allergy/AdvReac Type Severity Reaction Status Date / Time lorazepam (From Ativan) AdvReac Intermediate Agitated Verified 04/04/25 17:29 Review of Systems Status of ROS: Reports: 10 or more systems reviewed and unremarkable except as noted in History and below PFSH PFSH Social History Smoking Status: Never smoker Do you use any of these nicotine containing products: None How often do you have a drink containing alcohol: never AUDIT-C Alcohol total score: 0 Non-prescribed substance use: denies use service: No Exam Narrative: Exam Narrative: Well-nourished patient, Nonverbal. HEENT: Normocephalic atraumatic. Conjunctivae are moist without any icterus noted. Moist mucous membranes. Cardiovascular: Heart is regular rate and rhythm. Lungs: Clear to auscultation bilaterally. Abdomen: Firm, distended with hypoactive bowel sounds. Extremities: Bilateral lower extremities are without edema. Skin: Well perfused. Const: Vital Signs, click to edit/add: Vital Signs - 24 hr 04/04/25 17:24 04/04/25 19:52 04/04/25 20:39 Temperature 98 F 97.6 F Pulse Rate [Right Pulse Oximeter] 57 L 55 L Respiratory Rate 18 18 Blood Pressure [Ri ght Upper Arm] 143/97 H Pulse Oximetry 98 95 Oxygen Delivery Me thod Room Air Room Air Course Course ED Course: While waiting for his CT scan results, patient did have a small emesis. Did receive a call from the radiologist who commented about a 17 cm pseudocyst around the abdominal portion of the TRAILHEAD CONSTRUCTION WORKER shunt causing either a volvulus or closed loop bowel obstruction. I discussed this with Dr. Connolly, general surgery at [facility] and Dr. Willingham hospitalist who accepted the patient for transfer. At this time I am unable to place an NG tube as the patient will not allow this to happen. Mom states that in the past if an NG tube was necessary he needs to be in a four-point restraint or he needs to be completely sedated. We unfortunately do not have the staff available at this time to accomplish this. Shortly after this conversation patient had a very large emesis and appeared to feel much better. During this time staff was also unable to get an IV in. Anesthesia called in. Vital Signs Vital signs: Initial Vital Signs Temperature 98 F 04/04/25 17:24 Temperature Source Temporal Artery Scan 04/04/25 17:24 Pulse Rate 57 L 04/04/25 17:24 Pulse Rhythm Regular 04/04/25 17:24 Pulse Strength 3+ Normal 04/04/25 17:24 Respiratory Rate 18 04/04/25 17:24 Pulse Oximetry 98 04/04/25 17:24 Oxygen Delivery Method Room Air 04/04/25 17:24 Vital Signs Temperature 98 F 04/04/25 17:24 Pulse Rate 57 L 04/04/25 17:24 Respiratory Rate 18 04/04/25 17:24 Pulse Oximetry 98 04/04/25 17:24 Oxygen Delivery Method Room Air 04/04/25 17:24 Temperature 97.6 F 04/04/25 20:39 Pulse Rate 55 L 04/04/25 20:39 Respiratory Rate 18 04/04/25 20:39 Blood Pressure 143/97 H 04/04/25 19:52 Pulse Oximetry 95 04/04/25 20:39 Oxygen Delivery Method Room Air 04/04/25 20:39 Medical Decision Making MDM Narrative Medical decision making narrative: 25-year-old male with developmental disabilities, presenting with abdominal pain secondary to a large pseudocyst around the TRAILHEAD CONSTRUCTION WORKER shunt causing either closed loop small bowel obstruction or volvulus. Patient will be transferred to [facility] for further management. Imaging Data CT scan - abdomen: Attestation: I have reviewed the pertinent imaging results. Radiologist's impression: Technique: Noncontrast CT through the abdomen and pelvis with multiplanar reformats. Comparison: CT abdomen and pelvis performed 05/26/2024 Findings: Lower chest: Dilated esophagus. Hepatobiliary: No significant parenchymal abnormality is appreciated. Spleen: Unremarkable. Pancreas: No acute abnormality appreciated. Adrenal glands: No acute abnormality appreciated. Kidneys: No significant parenchymal abnormality appreciated. No visualized calculi. No hydronephrosis. Bowel: Marked dilation of the stomach and proximal portions of the duodenum with a focal transition point as the duodenum traverses anterior to the aorta. Distal to this are additional loops of irregular, dilated, and wall thickened small bowel in the vicinity of the pseudocyst. More distal bowel appears completely decompressed. Vascular: Poorly evaluated on this noncontrast examination. Lymph nodes: No gross lymphadenopathy. Peritoneum: There is a massive fluid collection in the abdomen measuring 17.4 x 13.0 x 10.7 cm. This fluid collection encompasses essentially the entire peritoneal portion of patient`s TRAILHEAD CONSTRUCTION WORKER shunt hardware. This was not present on the prior study. : No acute abnormality appreciated. Soft tissues: Abandoned right shunt catheter. Left shunt catheter. Bones: No acute fracture. No lytic or blastic lesion. Impression: 1. There is a new mass or fluid collection in the abdomen measuring 17.4 cm which encompasses essentially the entire peritoneal portion of the patient`s TRAILHEAD CONSTRUCTION WORKER shunt hardware most compatible with a new pseudocyst. 2. There are severely irregular areas of bowel including a markedly dilated lower esophagus, stomach, and proximal duodenum, 2 suspected transition points, and dilated bowel with wall thickening involving proximal jejunal loops. Given the pseudocyst the most concerning etiology would be a closed loop obstruction secondary to internal hernia or volvulus with the pseudocyst serving as a lead point. Distal bowel is decompressed. Foci of gas throughout bowel favored to be intraluminal gas due to compression of bowel from the cyst but pneumatosis can not be excluded. Can not assess for hypoperfusion due to the absence of IV contrast. Discharge Plan Discharge Clinical Impression: Small bowel obstruction Patient Disposition: [facility] Condition: Guarded Prescriptions: No Action glycopyrrolate 1 mg tablet PO alprazolam 1 mg tablet PO risperidone 0.25 mg tablet PO levocarnitine 330 mg tablet 330 mg PO 3XD lamotrigine 25 mg tablet PO BID propranolol 40 mg tablet PO diazepam [Diazepam Intensol] 5 mg/mL concentrate PO ibuprofen 600 mg tablet 1,200 mg PO BID divalproex 125 mg capsule, delayed rel sprinkle PO risperidone 1 mg tablet PO lamotrigine 100 mg tablet 100 mg PO BID eszopiclone 3 mg tablet 3 mg PO QPM PRN diazepam 5-7.5-10 mg kit DE DAILY ondansetron HCl 4 mg tablet 4 mg PO Q6H Stand Alone Forms: [facility] Info Instructions
[2025-04-04 19:52] VITALS: BP 143/97
[2025-04-04 20:39] VITALS: PULSE 55; RESP 18; TEMP 36.4; O2SAT 95
[2025-04-04 22:56] LABS: Lactate* 2.1 mmol/L (0.5-1.9)
[2025-04-04 23:20] LABS: Hematocrit* 65.1 % (37.0-53.0); Hemoglobin* 22.3 gm/dL (13.5-17.5); Immature Granulocytes Abs Auto 0.12 K/uL (0.00-0.30); Immature Granulocytes Pct Auto 1.3 %; Mean Corpuscular HGB Conc 34 gm/dL (32-36); Mean Corpuscular Hemoglobin 30 pg (26-34); Mean Corpuscular Volume 87 fL (80-100); RDW Coefficient of Variation % 13.2 % (11.5-15.5); Red Blood Count* 7.46 m/uL (4.30-5.90); White Blood Count* 9.48 K/uL (4.50-11.00)
[2025-04-04 23:24] LABS: Lymphocytes Absolute Auto 1.10 K/uL (0.90-2.90); Slide Review Reflex No
[2025-04-04 23:48] VITALS: BP 152/82; PULSE 58; RESP 18; TEMP 36.6; O2SAT 96
== END 2025-04-05 01:19 | disposition short-term general hospital (02) ==
PROVIDERS: Emergency Provider Family Medicine; PCP Family Medicine
DX: K56.609 Unspecified intestinal obstruction, unspecified as to partial versus complete obstruction (principal); Z96.89 Presence of other specified functional implants
CPT/HCPCS: 36415; 74176; 80048; 80076; 83605; 85025; 86140; 99285

== ENCOUNTER 2025-04-18 22:27 | Emergency (ER) | payer MEDICAID, SELFPAY ==
--- OUTSIDE RECORDS SUMMARY | 2025-04-18 22:32 | XMS_ITS | Clinical Summary ---
Author Organization [employer] [facility] Address [address] [place] [address] Care Team Providers Care Doctor Of Podiatry Name Role Phone Joshua Wilde MD Primary [...] reaction Medications Diazepam (DIASTAT ACUDIAL) 12.5-15-17.5-20 mg kitIndications:S eizure disorder (HC) Insert 20 mg rectally one [...] (total dose = 150 mg) twice daily. Active milk of magnesia (MOM) 400 mg/5 [...] dental 1.1 % gel Apply to teeth at bedtime. Active selenium sulfide (Anti-Dandruff) 1 % Apply topically to affected area(s) every Monday and . Head and Shoulders shampoo: Every week once a day on Monday and Active acetaminophen (TYLENOL EXTRA STRGTH) 500 mg tablet Take 1,000 mg by mouth every 6 hours if needed. Cold/discomfort from colds/sore throat. Give 2 tablets q 6 hoursprn for fever or discomfort. Max acetaminophen dose: 3000mg in 24 hrs. Active diazePAM CONCENTRATE (DIAZEPAM INTENSOL) 5 mg/mL [...] 750 mg by mouth two times daily. 024 Active bisacodyL (DULCOLAX) 10 mg suppositoryIndic ations:Chronic constipation INSERT 1 SUPPOSITORY PER RECTUM EVERY DAY NEEDED 24 Suppository 2 024 Active risperiDONE (RISPERDAL) 0.25 mg tabletIndication s:Impulse control disorder in adult TAKE 1 TABLET BY MOUTH EVERY MORNING ALONG WITH 1MG TO =1.25MG;TAKE 2 TABLETS BY MOUTH DAILY IN AFTERNOON ALONG WITH 1MG TO = 1.50MG 84 Tablet 6 025 Active risperiDONE (RISPERDAL) 1 mg tabletIndication s:Impulse control disorder in adult TAKE 1 TABLET BY MOUTH 3 TIMES DAILY 84 Tablet 6 025 Active eszopiclone (LUNESTA) 3 mg tabletIndication s:Insomnia, unspecified type Take 1 Tablet (3 mg) by mouth at bedtime. 30 Tablet 5 025 Active sennosides-docus ate (Stimulant Laxative Plus) (8.6-50 mg) tabletIndication s:Chronic constipation Take 1 Tablet by mouth two times daily. 56 Tablet 12 025 Active ALPRAZolam (XANAX) 1 mg tabletIndication s:Anxiety TAKE UP TO 2 TABLETS BY MOUTH ONCE DAILY NEEDED PRIOR TO DENTAL PROCEDURES 2 Tablet 2 025 Active propranoloL 40 mg tabletIndication s:Impulse control disorder in adult TAKE 2&1/2 TABLETS BY MOUTH THREE TIMES DAILY 675 Tablet 025 Active glycopyrrolate (ROBINUL) 1 mg tablet Take 1 mg by mouth three times daily. Active emollient combination no.115 (Vanicream Moisturizing) lotn Apply topically to affected area(s) two times daily. apply topically to areas of dry skin (legs, feet, torso, arms, hands) twice daily. Only apply after any prescribed ointments/cream s have been applied Active neomycin-bacitra aliza-polymyxin (Triple Antibiotic) 3.5mg-400 unit-5,000 unit/gram ointment Apply topically to affected area(s) 2 times daily if needed (dry cracked skin). apply to affected areas twice daily daily as needed until healed (dry cracked skin) Active terbinafine (Antifungal) 1 % cream Apply topically to affected area(s) 2 times daily if needed (rash). apply topically to affected areas twice daily as needed for rash Active loperamide (Imodium A-D) 2 mg capsule Take 1-2 Capsules by mouth each time if needed for Diarrhea. Take 2 capsules (4mg) orally with 1st loose stool, then 1 capsule (2mg) with other loose stools. Max 16 mg in 24 hrs. Active emollient combination no.119 (Eucerin Advanced Repair) crea Apply topically to affected area(s) once daily in the evening. apply topically to thickened plantar surface area (ball/bottom of foot) nightly Active polyethylene glycoL (MIRALAX) 17 gram/scoop powderIndication s:Small bowel obstruction (HC) Mix 1 scoop (17 g) in liquid then take by mouth once daily if needed for Constipation. 025 Active OLANzapine (ZYPREXA ZYDIS) 5 mg disintegrating tabletIndication s:Autism spectrum disorder (HC) Take 1 Tablet (5 mg) by mouth every 6 hours if needed for Agitation. 30 Tablet 025 Active risperiDONE (RISPERDAL) 0.25 mg tabletIndication s:Impulse control disorder in adult TAKE 1 TABLET BY MOUTH EVERY MORNING ALONG WITH 1MG TO =1.25MG;TAKE 2 TABLETS BY MOUTH DAILY IN AFTERNOON ALONG WITH 1MG TO = 1.50MG 90 Tablet 5 023 Discontinued( Reorder (E-cancel not sent)) triamcinolone (ARISTOCORT; KENALOG) 0.1 % creamIndications :Keratoderma Apply a thin layer to the feet twice daily on the s, Monday and monday 80 g 024 04/05 Discontinued( *Patient states no longer taking) emollient (Eucerin Advanced Repair Foot) cream Apply topically to affected area(s) every Monday, Monday and Monday. To ball / bottom of feet. MWF at 8 PM 04/05 Discontinued( *Patient states no longer taking) menthol (COUGH DROPS MM) Apply to the lining of the mouth every 2 hours if needed. colds/discomfor t from colds/sore throat for cough or sore throat. 04/16 Discontinued( *IP Discontinued) urea 40 % creamIndications :Keratoderma Apply a thin layer to the thickened areas on the feet 3-4 times weekly as tolerated 80 g 1 025 04/05 Discontinued( *Patient states no longer taking) polyethylene glycoL 17 gram/scoop powderIndication s:Small bowel obstruction (HC) Mix 1 scoop (17 g) in liquid then take by mouth two times daily. 1020 g 5 025 04/15 Discontinued guaiFENesin 100 mg/5 mL (20 mg/mL) liquid Take 100 mg by mouth every 4 hours if needed for Expectoration. 04/16 Discontinued( *IP Discontinued) clotrimazole (LOTRIMIN) 1 % cream Apply topically to affected area(s) 2 times daily if needed. 04/05 Discontinued( *Patient states no longer taking) Active Problems Problem Noted Date Diagnosed Date Closed loop obstruction of intestine 04/05/2025 S/P ventriculoperitoneal shunt 05/29/2024 Overview (04/17/2025): 1998 GROUP MANAGER Shunt placement, using a Medos programmable valve - Dr. Christiansen 08/31/2007 VPS revision - Dr. Christiansen 02/25/2009 VPS revision - Dr. Christiansen 10/15/2015 VPS revision, placement of new R-frontal VPS - Dr. Christiansen 11/18/2015 Externalization of VPS - Dr. Christiansen 12/08/2015 VPS revision, removal of R-VPS, placement of new L- frontal VPS, using a Medos programmable valve aet at 100 - Dr. Christiansen 04/07/2025 Externalization of L-VPS ( abdominal pseudocyst ) 04/10/2025 Removal of externalized L-VPS, placement of new R-occipital VPS, using a Medos programmable valve set at 100 - Dr. Christiansen Sialorrhea 01/31/2024 Impulse control disorder in adult [...] Encounters Date Type Department Care Team Description 04/17/2025 Telephone [facility] [address] [phone] Justo Christiansen, [facility] Questions 04/17/2025 Patient Outreach [facility] [address] [place] [address] Sirena Mendoza, RN Hospital F/U; Primary RN Care Management (LACE 52 ) 04/15/2025 Orders Only [facility] Neurosurgery [facility] [address] [phone] Hailee Phipps NP <No scans attached> 04/10/2025 3:00 PM CDT Anesthesia Event [facility] [address] [place] [address] Jesus Reddy, Robbi Swift MD 04/10/2025 2:35 PM CDT - 04/10/2025 4:50 PM CDT Surgery [facility] [address] [place] [address] Justo Christiansen MBChB RIGHT VENTRICULAR PERITONEAL SHUNT PLACEMENT, REMOVAL PREVIOUS SHUNT 04/08/2025 Travel 04/07/2025 2:45 PM CDT - 04/07/2025 4:43 PM CDT Surgery [facility] [address] [place] [address] Justo Christiansen MBChB LEFT SIDE EXTERNALIZATION VENTRICULOPERITONEAL SHUNT 04/07/2025 2:09 PM CDT Anesthesia Event [facility] [address] [place] [address] Catalina Verma MD 04/06/2025 11:40 AM CDT Anesthesia Event [facility] Medical Imaging [address] [address] Melba Medrano MD 04/06/2025 11:15 AM CDT Anesthesia Event [facility] [address] [address] Melba Medrano MD 04/05/2025 2:15 AM CDT - 04/16/2025 10:28 AM CDT Hospital Encounter [facility] [address] [place] [address] [facility] [place] DO Schultz, Brianna Lee, MD Qamar, Asma, Shahid Zaidi MD Other mechanical complication of ventricular intracranial shunt, subsequent encounter (Primary Dx); S/P ventriculoperitoneal shunt; Small bowel obstruction (HC); Autism spectrum disorder (HC) Discharge Disposition: Home Self Care 04/04/2025 Orders Only [facility] Scanner 1 scan: (1-Ord) [place], CT ABDOMEN PELVIS WO CON, 04/04/2025 02/20/2025 Refill [facility] [address] [place] [address] Joshua Wilde MD Refill Request (Propranolol) 02/12/2025 Refill [facility] [address] [place] [address] Joshua Wilde MD Refill Request (Alprazolam) 02/06/2025 11:00 AM CDT Office Visit [facility] [address] [place] [address] Joshua Wilde MD Physical (24 year old) 02/06/2025 Travel 02/03/2025 Telephone [facility] [address] [place] [address] Torie Gómez MD Late Cancel Appointment 01/27/2025 Refill [facility] [address] [place] [address] Torie Gómez MD Refill Request (Eszopiclone Tab 3mg ) 01/22/[address] [address] Torie Gómez MD Refill Request (Risperidone, Risperidone) from Last 3 Months Immunizations Immunization Administration Dates Next Due COVID-19 vaccine (Moderna 100mcg/0.5mL) PFMDV 08/19/2020,07/22/2020 DTaP 05/05/2003, 0,03/11/1999,10/23 DTaP-HIB (TriHIBIT) 06/16/1999 [...] or isolated from those around you? 0 04/08/2025 Financial Resource Strain Answer Date R ecorded Difficulty of Paying Living Expenses 3 05/27/2024 Difficulty of Paying Living Expenses Not on file 05/27/2024 Food Insecurity Answer Date Recorded Do you worry your food will run out before you are able to buy more? 1 04/08/2025 Transportation Needs Answer Date Record ed Does lack of transportation keep you from medica l appointments? 1 04/08/2025 Does lack of transportation keep you from work, meetings or getting things that you need? 1 04/08/2025 Housing Stability Answer Date Recorded What is your housing situation today? 1 04/08/2025 Interpersonal Safety Answer Date Record ed Are you being hit, kicked, p ushed or yelled at (see row info)? Unable to assess due to chronic condition 04/08/2025 Interpersonal Safety Abuse 12 - 18 Not on file 04/08/2025 Interpersonal Safety Ambulat ory Vulnerability Not on file 04/08/2025 Utilities Answer Date Recorded Do you have trouble paying f or utilities (for example, heat, electricity, water, phone)? 1 04/08/2025 Sex and Gender Information Value Date Recorded Sex Assigned at Not on file Legal Sex Male 8:10 AM DRAFTER (CAD) ELECTRICAL Gender Identity Not on file Sexual Orientation Not on file Obstetrics History Last Filed Vital Signs Vital Sign Reading Time Taken Comments Blood Pressure 133/62 04/15/2025 8:28 PM CDT Pulse 88 04/15/2025 8:28 PM CDT Temperature 36.1 C (96.9 F) 04/15/2025 3:52 PM CDT Respiratory Rate 16 04/15/2025 11:50 PM CDT Oxygen Saturation 95% 04/15/2025 8:28 PM CDT Inhaled Oxygen Concentration - - Weight 49.2 kg (108 lb 6.4 oz) 04/12/2025 3:42 P M CDT Height 154.9 cm (5' 1) 02/06/2025 11:12 AM CDT Body Mass Index 20.48 02/06/2025 11:12 AM CDT Plan of Treatment Upcoming Encounters Date Type Department Care Team (Late st Contact Info) Description 04/22/2025 11:20 AM CDT Office Visit [facility] [address] [place] [address] Joshua Wilde MD [address] [place] [address] 04/22/2025 12:00 PM CDT Ancillary Procedure [facility] [address] [place] [address] 05/15/2025 11:45 AM DRAFTER (CAD) ELECTRICAL Appointment [facility] Medical Imaging [address] [place] [address] 05/15/2025 12:30 PM DRAFTER (CAD) ELECTRICAL Office Visit [facility] Neurosurgery [facility] [address] [place] [phone] Johny Whitehead, IT RISK AND ASSURANCE MANAGER [address] [place] [address] 05/20/2025 10:45 AM DRAFTER (CAD) ELECTRICAL Telemedicine [facility] [address] [place] [address] Torie Gómez MD [address] [place] [address] 02/09/2026 11:45 AM CDT Office Visit [facility] [address] [place] [address] Joshua Wilde MD [address] [place] [address] Health Maintenance Due Date Last Done Comments [...] 18-79 Completed 02/01/2023 Pneumococcal series for age 6-49 Aged Out No longer eligible based on patient's age to complete this topic Medical Devices Implanted Type Area Tire Repairer Device Identifier Shelf Expiration Date Model / Serial / Lot Valve Neuro Micro Hakim W/ [place] - [id number] Implanted:Qty: 1 on 04/10/2025 by Justo Christiansen MBC at [facility] Right: Abdomen Neu[employer]x Molecular 07/26/2029 [id number] / / [id number] Explanted Type Area Tire Repairer Device Identifier Shelf Expiration Date Model / Serial / Lot Explant Explanted:Qty: 1 on 04/10/2025 at [facility] Left: Cranium Description:GROUP MANAGER SHUNT X1 Procedures Procedure Name Priority Date/Time Associated Diagnosis Comments GLUCOSE METER Timed 04/15/2025 7:[address] ABDOMEN LIMITED WO Routine 04/14/2025 11:32 AM CDT VANCOMYCIN PEAK Timed 04/13/2025 10:35 AM CDT CREATININE Timed 04/13/2025 10:35 AM CDT VANCOMYCIN TROUGH Timed 04/11/2025 8:[address] HEAD BRAIN WO Routine 04/11/2025 11:58 AM CDT XR SHUNT SERIES CUSTOM Routine 04/11/2025 11:17 AM CDT HARDWARE CULTURE , STAIN Today 04/10/2025 4:58 PM CDT ENDOTRACHEAL TUBE Routine 04/10/2025 3:20 PM CDT ENDOTRACHEAL TUBE Routine 04/10/2025 3:20 PM CDT ENDOTRACHEAL TUBE Routine 04/10/2025 3:20 PM CDT REMOVAL VENTRICULAR PERITONEAL SHUNT Class D Urgent: Inpt requiring surgery 04/10/2025 2:40 PM CDT GROUP MANAGER SHUNT PSEUDOCYST Case Notes ULTRASOUND VISION SCOPE SUPINE Remove old externalized Left shunt, placement of new left shunt ENDOSCOPIC INSERTION VENTRICULAR PERITONEAL SHUNT Class D Urgent: Inpt requiring surgery 04/10/2025 2:40 PM CDT GROUP MANAGER SHUNT PSEUDOCYST Case Notes ULTRASOUND VISION SCOPE SUPINE Remove old externalized Left shunt, placement of new left shunt CT HEAD BRAIN WO Timed 04/10/2025 1:44 PM CDT BASIC METABOLIC PANEL Early AM 04/10/2025 10:41 AM CDT CBC W PLT NO DIFF Early AM 04/10/2025 7:31 AM CDT EKG 12 LEAD Routine 04/10/2025 12:05 AM CDT EKG 12 LEAD TRIPP 04/09/2025 3:57 PM CDT VALPROIC ACID TOTAL TRIPP 04/09/2025 2:34 PM CDT PROCALCITONIN Timed 04/09/2025 2:34 PM CDT C-REACTIVE PROTEIN Timed 04/09/2025 2:34 PM CDT EKG 12 LEAD Routine 04/09/2025 10:[address] ABDOMEN PELVIS WO Routine 04/08/2025 12:[address] HEAD BRAIN WO Routine 04/08/2025 12:46 PM CDT CWS PATH REVIEW BODY FLUID Timed 04/08/2025 10:10 AM CDT GLUCOSE,CSF Today 04/08/2025 10:10 AM CDT SPINAL FLUID CULT, STAIN Today 04/08/2025 10:10 AM CDT PROTEIN CSF,TOTAL Today 04/08/2025 10:10 AM CDT CSF CELL COUNT/DIFF Routine 04/08/2025 10:10 AM CDT HARDWARE CULTURE , STAIN Today 04/07/2025 2:37 PM CDT ENDOTRACHEAL TUBE Routine 04/07/2025 2:32 PM CDT ENDOTRACHEAL TUBE Routine 04/07/2025 2:32 PM CDT REVISION SHUNT Class D Urgent: Inpt requiring surgery 04/07/2025 1:52 PM CDT SCAN CORRESP-IMAGING 04/07/2025 12:26 PM CDT CREATININE Early AM 04/07/2025 7:38 AM CDT POTASSIUM Early AM 04/07/2025 7:38 AM CDT SODIUM Early AM 04/07/2025 7:38 AM CDT PLATELET COUNT Early AM 04/07/2025 7:38 AM CDT HEMOGLOBIN Early AM 04/07/2025 7:38 AM CDT WHITE BLOOD COUNT Early AM 04/07/2025 7:38 AM CDT XR SHUNT SERIES CUSTOM Routine 04/06/2025 1:[address] HEAD BRAIN WO Routine 04/06/2025 12:[address] PARACENTESIS ABDOMEN PELVIS ASPIRATION INC GUIDE Routine 04/06/2025 12:44 PM CDT PATH NON ABRASIVE MIXER HELPER CYTOLOGY Timed 04/06/2025 12:22 PM CDT [facility] MISCELLANEOUS SENDOUT Routine 04/06/2025 12:22 PM CDT MISCELLANEOUS SEND OUT Routine 04/06/2025 12:22 PM CDT BILIRUBIN TOTAL BODY FLUID Today 04/06/2025 12:22 PM CDT ALBUMIN BODY FLUID Early AM 04/06/2025 12:22 PM CDT AMYLASE,BODY FLUID Early AM 04/06/2025 12:22 PM CDT AFB CULTURE, STAIN Routine 04/06/2025 12:22 PM CDT ANAEROBIC CULTURE Routine 04/06/2025 12:22 PM CDT PROTEIN,BODY FLUID Early AM 04/06/2025 12:22 PM CDT BODY FLUID CULTURE,STAIN (AEROBIC) Early AM 04/06/2025 12:22 PM CDT BODY FLUID CELL COUNT/DIF Early AM 04/06/2025 12:22 PM CDT ENDOTRACHEAL TUBE Routine 04/06/2025 11:59 AM CDT ENDOTRACHEAL TUBE Routine 04/06/2025 11:59 AM CDT BASIC METABOLIC PANEL Early AM 04/06/2025 11:03 AM CDT CBC W PLT NO DIFF Early AM 04/06/2025 11:03 AM CDT PROTIME-INR Today 04/06/2025 11:01 AM CDT BLOOD CULTURE Today 04/06/2025 11:00 AM CDT BLOOD CULTURE Today 04/06/2025 10:54 AM CDT XR ABDOMEN 1 VIEW PORTABLE STAT 04/06/2025 1:15 AM CDT PROCALCITONIN TRIPP 04/05/2025 6:[address] ABDOMEN PELVIS W STAT 04/05/2025 1:03 PM CDT XR ABDOMEN 1 VIEW PORTABLE STAT 04/05/2025 5:51 AM CDT HEPATIC FUNCTION PANEL TRIPP 04/05/2025 3:34 AM CDT LIPASE TRIPP 04/05/2025 3:34 AM CDT C-REACTIVE PROTEIN TRIPP 04/05/2025 3:34 AM CDT LACTATE VENOUS STAT 04/05/2025 3:34 AM CDT CBC W PLT NO DIFF STAT 04/05/2025 3:34 AM CDT BASIC METABOLIC PANEL STAT 04/05/2025 3:34 AM CDT SCAN-CARDIAC STRIP 04/05/2025 12:00 AM CDT SCAN-CARDIAC STRIP 04/05/2025 12:00 AM CDT SCAN-CARDIAC STRIP 04/05/2025 12:00 AM CDT SCAN-CT INTERPRETATION 04/04/2025 12:00 AM CDT LC HIV-1/O/2, 4TH GENERATION Routine 02/01/2023 11:40 AM CDT Screening for HIV (human immunodeficiency virus) LC HCV ANTIBODY RFX TO QUANT PCR Routine 02/01/2023 11:40 AM CDT Need for hepatitis C screening test from Last 3 Months or Most Recently Relevant to Health Maintenance Results * (ABNORMAL) GLUCOSE METER (04/15/2025 7:58 AM CDT) [facility] GLUCOSE METER 123(H) 65 - 100 mg/dL 04/15/2025 7:59 AM CDT [facility] Blood BLOOD SPECIMEN / Unknown 04/15/2025 7:58 AM CDT 04/15/2025 7:59 AM CDT us Shahid Duncan MD CHEMISTRY Final R esult [facility] [address] [place] [address], [place] * CT ABDOMEN LIMITED WO (04/14/2025 11:32 AM CDT) Anatomical Region Laterality Modality Abdomen, Pelvis, AORTA, LIVER, SPLEEN Computed Tomography 04/14/2025 12:2 6 PM CDT Narrative 04/14/2025 12:26 PM CDT For Patients: As a result of the Cures Act, medical imaging exams and procedure reports are released immediately into your electronic medical record. You may view this report before your referring provider. If you have questions, please contact your health care provider. INDICATION : CSF pseudocyst. Shunt revision. TECHNIQUE : Noncontrast CT scan abdomen limited. COMPARISON: 04/08/[address] scan abdomen pelvis FINDINGS : Abdominal wall and ventriculoperitoneal shunt: Removal of the previous left-sided shunt. Right-sided subcutaneous abdominal wall and chest wall catheter. The shunt has multiple intraperitoneal loops localized at the right mid abdomen just above the level of the right iliac crest. 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 The catheter within the cyst has been removed. Liver spleen pancreas adrenal glands kidneys: No change. GI tract: The stomach is distended with fluid. There is some persistent phlegmon about the area of the 1st portion of the duodenum which has been previously described. Lymph nodes: No new adenopathy. Lung bases: Clear. Skeletal: No change. IMPRESSION : 1. Removal of abdominal portion previous left GROUP MANAGER shunt. 2. New placement right-sided GROUP MANAGER shunt described as above. 3. Decreasing size of the CSF pseudocyst in the left upper quadrant. 4. Persistent although slightly decreased phlegmon about the area of the 2nd portion of the duodenum and the pancreatic head. Please note that all CT scans at this facility use dose modulation, iterative reconstruction, and/or weight-based dosing when appropriate to reduce radiation dose to as low as reasonably achievable. Dictated by Mikel Su MD @ 04/14/2025 12:26:28 PM (Electronically Signed) Procedure Note Mikel Su MD - 04/14/2025 For Patients: As a result of the Cures Act, medical imagingexams and procedure reports are released immediately into your electronicmedical record. You may view this report before your referring provider.If you have questions, please contact your health care provider. INDICATION : CSF pseudocyst. Shunt revision. TECHNIQUE : Noncontrast CT scan abdomen limited. COMPARISON: 04/08/[address] scan abdomen pelvis FINDINGS : Abdominal wall and ventriculoperitoneal shunt: Removal of the previous left-sided shunt. Right-sided subcutaneousabdominal wall and chest wall catheter. The shunt has multipleintraperitoneal loops localized at the right mid abdomen just above thelevel of the right iliac crest. CSF pseudocyst: Residual CSF pseudocyst left abdomen 8 x 10 cmsignificantly decreased in size. The catheter within the cyst has beenremoved. Liver spleen pancreas adrenal glands kidneys: No change. GI tract: The stomach is distended with fluid. There is some persistentphlegmon about the area of the 1st portion of the duodenum which has beenpreviously described. Lymph nodes: No new adenopathy. Lung bases: Clear. Skeletal: No change. IMPRESSION : 1. Removal of abdominal portion previous left GROUP MANAGER shunt. 2. New placement right-sided GROUP MANAGER shunt described as above. 3. Decreasing size of the CSF pseudocyst in the left upper quadrant. 4. Persistent although slightly decreased phlegmon about the area of the2nd portion of the duodenum and the pancreatic head. Please note that all CT scans at this facility use dose modulation,iterative reconstruction, and/or weight-based dosing when appropriate toreduce radiation dose to as low as reasonably achievable. Dictated by Mikel Su MD @ 04/14/2025 12:26:28 PM (Electronically Signed) Johny Whitehead NP CT Final Res ult * CREATININE (04/13/2025 10:35 AM CDT) Only the most recent of2 resultswithin the time period is included. [facility] eGFR >90 >90 mL/min/1.7 3m2 04/13/2025 11:25 AM CDT [facility] Comment:As of 2021, eG FR is calculated by the CKD-EPI creatinine equation without race adjustment. eGFR can be influenced by muscle mass, exercise, and diet. The reported eGFR is an estimation only and is only applicable if the renal function is stable. CREATININE 0.85 0.70 - 1.20 mg/dL 04/13/2025 11:25 AM CDT [facility] Blood BLOOD SPECIMEN / Unknown Venipuncture / Unknown 04/13/2025 10:35 AM CDT 04/13/2025 10:50 AM CDT Hailee Phipps IT RISK AND ASSURANCE MANAGER CHEMISTRY Final Result Performing Organization Address City/[facility]/ZIP Co de Phone Number [facility] [address] [place] [address], [place] * VANCOMYCIN PEAK (04/13/2025 10:35 AM CDT) [facility] VANCOMYCIN,PEA K 43.3 35.0 - 45.0 ug/mL 04/13/2025 11:23 AM CDT [facility] DATE OF LAST DOSE,PEAK Not Given 04/13/2025 11:23 AM CDT [facility] TIME OF LAST DOSE,PEAK Not Given 04/13/2025 11:23 AM CDT [facility] Blood BLOOD SPECIMEN / Unknown Venipuncture / Unknown 04/13/2025 10:35 AM CDT 04/13/2025 10:51 AM CDT Ilene Larios RN CHEMISTRY Final Result Performing Organization Address City/[facility]/ZIP Co de Phone Number [facility] [address] [place] [id number], [place] * VANCOMYCIN TROUGH (04/11/2025 8:26 PM CDT) VANCOMYCIN,TRO UGH 8.8 7.0 - 20.0 ug/mL 04/11/2025 8:58 PM CDT [facility] DATE OF LAST DOSE,TROUGH Not given 04/11/2025 8:58 PM CDT [facility] TIME OF LAST DOSE,TROUGH 2:20 PM 04/11/2025 8:58 PM CDT [facility] Blood BLOOD SPECIMEN / Unknown Butterfly / Unknown 04/11/2025 8:26 PM CDT 04/11/2025 8:31 PM CDT us Hailee Phipps NP CHEMISTRY Final Result [facility] [address] [place] [address], [place] * CT HEAD BRAIN WO (04/11/2025 11:58 AM CDT) Only the most recent of4 resultswithin the time period is included. Anatomical Region Laterality Modality HEAD, BRAIN Computed Tomogra phy 04/11/2025 12:5 8 PM CDT Impressions 04/11/2025 12:58 PM CDT 1. Suspect trace hemorrhage at the left suprasellar cistern/hypothalamic region, where the tip of the now removed left frontal approach ventriculostomy catheter was previously positioned. 2. Interval decompression of the supratentorial ventricular system status post new right occipital approach ventriculostomy catheter placement, traversing the right lateral ventricle. Johny Whitehead was paged at 12:53 p.m. on 04/11/2025 to discuss exam findings. Please note that all CT scans at this facility use dose modulation, iterative reconstruction, and/or weight-based dosing when appropriate to reduce radiation dose to as low as reasonably achievable. Dictated by Karo Mcbride MD @ 04/11/2025 12:58:43 PM (Electronically Signed) Narrative 04/11/2025 12:58 PM CDT For Patients: As a result of the Century Cures Act, medical imaging exams and procedure reports are released immediately into your electronic medical record. You may view this report before your referring provider. If you have questions, please contact your health care provider. 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 Coronal and sagittal reformats. Bone and soft tissue algorithms. COMPARISON: CT head 04/10/2025 FINDINGS: Interval removal of the left frontal approach ventriculostomy catheter, with suspected trace curvilinear hemorrhage in the left suprasellar cistern/hypothalamic region. Two new luis hole craniotomies at the right inferior parietal calvarium, with right occipital approach ventriculostomy catheter traversing the left lateral ventricle, tip terminating at midline along the roof of the right lateral ventricle body. Interval decompression of the supratentorial ventricular system, predominantly slit-like aside from the left frontal horn which contains small volume gas. Chronic sequela of previous right frontal approach ventriculostomy with subjacent encephalomalacia and gliosis. No other acute intracranial hemorrhage. No midline shift or herniation. Preserved stearns-white matter differentiation. Unremarkable midline structures and major intracranial vasculature. Clear visualized paranasal sinuses and mastoid air cells. Unremarkable orbits. Procedure Note Karo Mcbride, DO - 04/11/2025 For Patients: As a result of the 21st Century Cures Act, medical imagingexams and procedure reports are released immediately into your electronicmedical record. You may view this report before your referring provider.If you have questions, please contact your health care provider. 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 Coronal and sagittal reformats. Bone andsoft tissue algorithms. COMPARISON: CT head 04/10/2025 FINDINGS: Interval removal of the left frontal approach ventriculostomy catheter,with suspected trace curvilinear hemorrhage in the left suprasellarcistern/hypothalamic region. Two new luis hole craniotomies at the rightinferior parietal calvarium, with right occipital approach ventriculostomycatheter traversing the left lateral ventricle, tip terminating at midlinealong the roof of the right lateral ventricle body. Interval decompressionof the supratentorial ventricular system, predominantly slit-like asidefrom the left frontal horn which contains small volume gas. Chronicsequela of previous right frontal approach ventriculostomy with subjacentencephalomalacia and gliosis. No other acute intracranial hemorrhage. Nomidline shift or herniation. Preserved stearns-white matter differentiation.Unremarkable midline structures and major intracranial vasculature. Clearvisualized paranasal sinuses and mastoid air cells. Unremarkable orbits. IMPRESSION: 1. Suspect trace hemorrhage at the left suprasellar cistern/hypothalamicregion, where the tip of the now removed left frontal approachventriculostomy catheter was previously positioned. 2. Interval decompression of the supratentorial ventricular system statuspost new right occipital approach ventriculostomy catheter placement,traversing the right lateral ventricle. Johny Whitehead was paged at 12:53 p.m. on 04/11/2025 to discuss examfindings. Please note that all CT scans at this facility use dose modulation,iterative reconstruction, and/or weight-based dosing when appropriate toreduce radiation dose to as low as reasonably achievable. Dictated by Karo Mcbride MD @ 04/11/2025 12:58:43 PM (Electronically Signed) us Johny Whitehead IT RISK AND ASSURANCE MANAGER CT Final Res ult * XR SHUNT SERIES CUSTOM (04/11/2025 11:17 AM CDT) Only the most recent of2 resultswithin the time period is included. Anatomical Region Laterality Modality Digital Radiogra phy 04/11/2025 3:56 PM CDT Narrative 04/11/2025 3:56 PM CDT For Patients: As a result of the Cures Act, medical imaging exams and procedure reports are released immediately into your electronic medical record. You may view this report before your referring provider. If you have questions, please contact your health care provider. Indication: Evaluate shunt Technique: Frontal and lateral radiographs of the skull, thorax, and abdomen were obtained. Comparison: Radiographs 04/06/2025 Findings: Interval explantation of the left frontal approach ventriculostomy catheter. A ventriculoperitoneal shunt extends from the right occipital region, traverses the right neck, right anterior chest, right abdomen, and terminates in the right lower quadrant. The shunt catheter appears intact without evidence of fracture. The programmable shunt valve setting is set to 90 mm water. Abandoned shunt catheter overlying the right chest. Nonobstructive bowel-gas pattern. Impression: 1. Evaluation of the right occipital approach ventriculoperitoneal shunt without evidence of fracture. Interval explantation of the left frontal approach ventriculostomy catheter. 2. The programmable shunt valve setting is set to 90 mm water. Dictated by Joao Alaniz MD @ Apr 11 2025 3:56PM (Electronically Signed) Neuroradiologist [email or web address] Procedure Note Joao Alaniz MD - 04/11/2025 For Patients: As a result of the Cures Act, medical imagingexams and procedure reports are released immediately into your electronicmedical record. You may view this report before your referring provider.If you have questions, please contact your health care provider. Indication: Evaluate shunt Technique: Frontal and lateral radiographs of the skull, thorax, and abdomen wereobtained. Comparison: Radiographs 04/06/2025 Findings: Interval explantation of the left frontal approach ventriculostomycatheter. A ventriculoperitoneal shunt extends from the right occipitalregion, traverses the right neck, right anterior chest, right abdomen, andterminates in the right lower quadrant. The shunt catheter appears intactwithout evidence of fracture. The programmable shunt valve setting is setto 90 mm water. Abandoned shunt catheter overlying the right chest.Nonobstructive bowel-gas pattern. Impression: 1. Evaluation of the right occipital approach ventriculoperitoneal shuntwithout evidence of fracture. Interval explantation of the left frontalapproach ventriculostomy catheter. 2. The programmable shunt valve setting is set to 90 mm water. Dictated by Joao Alaniz MD @ Apr 11 2025 3:56PM (Electronically Signed) Neuroradiologist [email or web address] Johny Whitehead NP GENERAL IMAGING Final Res ult * HARDWARE CULTURE , STAIN (04/10/2025 4:58 PM CDT) Only the most recent of2 resultswithin the time period is included. CULTURE No Growth. 04/15/2025 10:39 AM CDT [facility] GRAM STAIN No PMNs 04/15/2025 10:39 AM CDT [facility] GRAM STAIN 2+ RBCs 04/15/2025 10:39 AM CDT [facility] GRAM STAIN No Epithelial cells 04/15/2025 10:39 AM CDT [facility] GRAM STAIN No organisms seen 04/15/2025 10:39 AM CDT [facility] Hardware/Explant SHUNT SUBMITTED SPECIMEN / Unknown Non-Blood / Unknown 04/10/2025 4:58 PM CDT 04/10/2025 5:24 PM CDT Justo Christiansen [facility] MICROBIOLOGY Final Result [facility] [address] [place] [address], * HCHG TUBE PR1, HCHG STYLET PR1, HCHG MOUTHPIECE PR1 (04/10/2025 3:20 PM CDT) Narrative Jesus Reddy CRNA - 04/10/2025 3:20 PM CDT Jesus Reddy CRNA 04/10/2025 3:21 PM Procedure: ETT Patient location during procedure: OR ETT Properties Mask Ventilation: easy Final Technique: direct laryngoscopy Type: straight Location: oral Cuffed: yes Tube Size: 7.5 mm Stylet: yes Laryngoscope Blade: Beyer Blade Size: 2 Cormack-Lehane Grade View: 1 Insertion Attempts: 1 Placement Verification: auscultation Assessment: pharynx clear Secured at: 21 Measured From: lips Tooth guard used and removed: yes Difficulty: 0 (not difficult) Robbi Medrano MD ANESTHESIA PX NOTE ORDERABLES Final Result * (ABNORMAL) BASIC METABOLIC PANEL (04/10/2025 10:41 AM CDT) Only the most recent of3 resultswithin the time period is included. SODIUM 145 136 - 145 mmol/L 04/10/2025 12:31 PM CDT [facility] POTASSIUM 3.6 3.5 - 5.1 mmol/L 04/10/2025 12:31 PM CDT [facility] CHLORIDE 108(H) 98 - 107 mmol/L 04/10/2025 12:31 PM CDT [facility] CO2,TOTAL 27 22 - 29 mmol/L 04/10/2025 12:31 PM CDT [facility] ANION GAP 10 5 - 18 04/10/2025 12:31 PM CDT [facility] GLUCOSE 88 70 - 99 mg/dL 04/10/2025 12:31 PM CDT [facility] CALCIUM 9.2 8.8 - 10.4 mg/dL 04/10/2025 12:31 PM CDT [facility] Comment: Reference ranges for this test were updated on 04/30/2024 to reflect our healthy population more accurately. Reference range changes are not retroactively applied to results, but previous results using the same methodology can be interpreted in the context of the new reference range. BUN 7 6 - 20 mg/dL 04/10/2025 12:31 PM CDT [facility] CREATININE 0.51(L) 0.70 - 1.20 mg/dL 04/10/2025 12:31 PM CDT [facility] BUN/CREAT RATIO 14 10 - 20 12:31 PM CDT [facility] eGFR >90 >90 mL/min/1. 73m2 04/10/2025 12:31 PM CDT [facility] Comment:As of 2021, eG FR is calculated by the CKD-EPI creatinine equation without race adjustment. eGFR can be influenced by muscle mass, exercise, and diet. The reported eGFR is an estimation only and is only applicable if the renal function is stable. Blood BLOOD SPECIMEN / Unknown Butterfly / Unknown 04/10/2025 10:41 AM CDT 04/10/2025 11:46 AM CDT us Scar KRAUSE CHEMISTRY Final Result [facility] [address] [place] [address], [place] * (ABNORMAL) CBC W PLT NO DIFF (04/10/2025 7:31 AM CDT) Only the most recent of3 resultswithin the time period is included. WHITE BLOOD COUNT 5.1 4.5 - 11.0 thou/cu mm 04/10/2025 7:46 AM CDT [facility] RED BLOOD COUNT 4.40 4.30 - 5.90 mil/cu mm 04/10/2025 7:46 AM CDT [facility] HEMOGLOBIN 13.3(L) 13.5 - 17.5 g/dL 04/10/2025 7:46 AM CDT [facility] HEMATOCRIT 38.3 37.0 - 53.0 % 04/10/2025 7:46 AM CDT [facility] MCV 87 80 - 100 fL 04/10/2025 7:46 AM CDT [facility] MCH 30.2 26.0 - 34.0 pg 04/10/2025 7:46 AM CDT [facility] MCHC 34.7 32.0 - 36.0 g/dL 04/10/2025 7:46 AM CDT [facility] RDW 12.6 11.5 - 15.5 % 04/10/2025 7:46 AM CDT [facility] PLATELET COUNT 195 140 - 440 thou/cu mm 04/10/2025 7:46 AM CDT [facility] MPV 10.2 6.5 - 11.0 fL 04/10/2025 7:46 AM CDT [facility] NRBC 0.0 % 04/10/2025 7:46 AM CDT [facility] ABS NRBC 0.0 thou /cu mm 04/10/2025 7:46 AM T [facility] Blood BLOOD SPECIMEN / Unknown Venipuncture / Unknown 04/10/2025 7:31 AM CDT 04/10/2025 7:39 AM CDT Scar ANDERSONBS HEMATOLOGY Final Result [facility] [address] [place] [address], * EKG 12 LEAD (04/10/2025 12:05 AM CDT) Only the most recent of3 resultswithin the time period is included. Interpretation Sinus bradycardia Abnormal QRS-T angle, consider primary T wave abnormality Abnormal ECG When compared with ECG of 09-Apr-2025 15:57, (Unconfirmed) Nonspecific T wave abnormality has replaced inverted T waves in Inferior leads T wave inversion no longer evident in Anterior leads BEYOND NOW Ventricular Rate 52 BPM BEYOND NOW Atrial Rate 52 BPM BEYOND NOW P-R Interval 120 ms BEYOND NOW QRS Duration 86 ms BEYOND NOW QT 434 ms BEYOND NOW QTc 403 ms BEYOND NOW P Honaker 4 degrees BEYOND NOW R Honaker 61 degrees BEYOND NOW T Honaker -1 degrees BEYOND NOW 04/10/2025 12:0 5 AM CDT 04/10/2025 3:41 PM CDT Scar Chang [facility] EKG ORD Final Result Performing Organization Address City/[facility] Co de Phone Number BEYOND NOW [place], [place] * PROCALCITONIN (04/09/2025 2:34 PM CDT) Only the most recent of2 resultswithin the time period is included. Pathologist [facility] PROCALCITONIN 0.04 ng/ml 04/09/2025 3:58 PM CDT [facility] Blood BLOOD SPECIMEN / Unknown Butterfly / Unknown 04/09/2025 2:34 PM CDT 04/09/2025 2:41 PM CDT Narrative [facility] - 04/09/2025 3:58 PM CDT Procalcitonin for initial assessment of Lower Respiratory Tract Infection: Results Interpretation <0.10 ng/mL Antibiotic therapy strongly discoraged. Indicates absent of bacterial infection. * 0.10 - 0.25 ng/mL Antibiotic therapy discouraged. Bacterial infection unlikely. * 0.26 - 0.50 ng/mL Antibiotic therapy encouraged. Bacterial infection possible. >0.50 ng/mL Antibiotic therapy strongly encouraged. Suggestive of presence of bacterial infection. *Antibiotic therapy should be considered regardless of PCT result if the patient is clinically unstable, is at high risk for adverse outcome, has strong evidence of bacterial pathogen, or the clinical context indicates antibiotic therapy is warranted. If antibiotics are withheld, reassess if symptoms persist/worsen and/or repeat PCT measurement within 6-24 hours. In order to assess treatment success and to support a decision to discontinue antibiotic therapy, follow up samples should be tested once every 1-2 days, based upon physician discretion taking into account patient's evolution and progress. Procalcitonin for initial assessment of severe sepsis risk: Results Interpretation <0.5 ng/ml A PCT level below 0.5 ng/ml on the first day of ICU admission is associated with a low risk for progression to severe sepsis and/or septic shock. > 2.0 ng/mL A PCT level above 2.0 ng/mL on the first day of ICU admission is associated with a high risk for progression to severe sepsis and/or septic shock. Note: Concentrations < 0.5 ng/mL do not exclude an infection, on account of localized infections (without systemic signs) which can be associated with such low concentrations, or a systemic infection in its initial stages(< 6 hours). Furthermore, increased procalcitonin can occur without infection. PCT concentrations between 0.5 and 2.0 ng/mL should be interpreted taking into account the patient's history. It is recommended to retest PCT within 6-24 hours if any concentrations < 2 ng/mL are obtained. Hailee Phipps NP SEND OUTS Final Result [facility] [address] [place] [address], * (ABNORMAL) VALPROIC ACID TOTAL (04/09/2025 2:34 PM CDT) [facility] VALPROIC ACID,TOTAL 33.9(L) 50.0 - 100.0 ug/mL 04/09/2025 3:48 PM CDT [facility] DATE OF LAST DOSE Not Given 04/09/2025 3:48 PM CDT [facility] TIME OF LAST DOSE Not Given 04/09/2025 3:48 PM CDT [facility] Blood BLOOD SPECIMEN / Unknown Butterfly / Unknown 04/09/2025 2:34 PM CDT 04/09/2025 2:40 PM CDT Homa Garcia MD CHEMISTRY Final Result [facility] [address] [address], [place] * (ABNORMAL) C-REACTIVE PROTEIN (04/09/2025 2:34 PM CDT) Only the most recent of2 resultswithin the time period is included. C-REACTIVE PROTEIN 1.9(H) <0.5 mg/dL 04/09/2025 3:10 PM CDT [facility] Blood BLOOD SPECIMEN / Unknown Butterfly / Unknown 04/09/2025 2:34 PM CDT 04/09/2025 2:40 PM CDT Hailee Phipps NP CHEMISTRY Final Result Performing Organization Address City/[facility]/ZIP Co de Phone Number [facility] [address] [place] [id number], [place] * CT ABDOMEN PELVIS WO (04/08/2025 12:47 PM CDT) Anatomical Region Laterality Modality Abdomen, Pelvis, AORTA, LIVER, SPLEEN Computed Tomography 04/08/2025 1:46 PM CDT Impressions 04/08/2025 1:46 PM CDT 1. Decrease in the size of a left inframesocolic multiloculated encapsulated CSF pseudocyst extending across the midline status post externalization of the left ventriculoperitoneal shunt catheter in the interval since the 04/05/2025 exam. Please see measurements in the body of the report above. There is persistent mass effect associated with the pseudocyst, specifically displacement of the surrounding small bowel in the left upper quadrant. 2. Persistent fat stranding surrounding the second segment of the duodenal sweep and pancreatic head. Differential diagnostic considerations include duodenitis and pancreatitis. Laboratory correlation is suggested. Consider Gastroenterology consultation as clinically appropriate. 3. Interval removal of the gastric tube compared to 04/05/2025 with resolution of gastric and duodenal distention as demonstrated on the 04/04/2025 exam. Please note that all CT scans at this facility use dose modulation, iterative reconstruction, and/or weight-based dosing when appropriate to reduce radiation dose to as low as reasonably achievable. Dictated by José Antonio Lew MD @ 04/08/2025 1:46:33 PM (Electronically Signed) Narrative 04/08/2025 1:46 PM CDT For Patients: As a result of the Century Cures Act, medical imaging exams and procedure reports are released immediately into your electronic medical record. You may view this report before your referring provider. If you have questions, please contact your health care provider. INDICATION: hx pseudocyst. tapped and now VPS externalized. (Sic) COMPARISON: Prior studies dated 04/05/2025, 04/04/2025 and 05/28/2024 TECHNIQUE: CT of the abdomen and pelvis without intravenous contrast. Please note that all CT scans at this facility use dose modulation, iterative reconstruction, and/or weight-based dosing when appropriate to reduce radiation dose to as low as reasonably achievable. FINDINGS: The study is performed without intravenous contrast. This limits the sensitivity of the exam for the detection bowel pathology, focal lesions of the abdominopelvic viscera and vascular pathology including significant vascular stenosis, occlusion and dissection. ABDOMEN Peritoneal Cavity: The patient is status post externalization of the left ventriculoperitoneal shunt catheter associated with a left inframesocolic peritoneal encapsulated pseudocyst. The pseudocyst is smaller in the interval since 04/05/2025, measuring approximately 12 cm in greatest axial dimension (series 3; image 69), compared to 16.6 cm on 04/05/2025 when measured in similar fashion (2; 69). A small adjacent loculated element in the right inframesocolic space is also decreased in size compared to the prior exam, measuring 2.4 cm currently (3; 76) compared to 3.2 cm previously (2; 82). There is persistent mass effect associated with this cyst which displaces the small bowel in the left upper quadrant. Liver: Normal contour and attenuation. No significant focal lesion. No intrahepatic biliary ductal dilatation. Gallbladder: Contracted. Vicarious excretion of contrast material is noted within the gallbladder lumen in the interval since the prior contrast-enhanced study of 04/05/2025. no pericholecystic inflammatory changes. Normal common duct caliber. Pancreas: Normal contour and attenuation. No peripancreatic inflammatory changes. No significant focal lesion. Normal main duct caliber. Spleen: Not enlarged. No significant focal lesion. Adrenal Glands: Symmetrical adrenal glands. No significant focal lesion. Kidneys: Normal bilateral renal attenuation. No significant focal lesion. No nephrolith. No dilatation of the intrarenal collecting systems. No ureteral stone. Nondilated ureters. Gastrointestinal tract: The previously noted gastric tube on the 04/05/2025 exam has been removed. Persistent fat stranding surrounding the second segment of the duodenal sweep and pancreatic head consistent with paraduodenal pancreatitis. Laboratory correlation is suggested. Differential diagnostic considerations include duodenitis. Resolution of previously noted gastric and duodenal distention not as shown on the 04/04/2025 exam. Vascular: Normal outer wall to outer wall abdominal aortic caliber. Patency and luminal caliber of the abdominopelvic arterial and venous vasculature cannot be assessed on this noncontrast study. Retroperitoneum: No adenopathy. PELVIS No bladder lesion is identified. No significant incidental findings related to the prostate or seminal vesicles. No significant ascites. No adenopathy. SKELETON [employer] Externalization of the left ventriculoperitoneal shunt catheter in the interval since the prior study of 04/05/2025. No other acute or significant incidental/interval findings. In-situ abandoned shunt catheter in the superficial soft tissues of the right anterior thoracic wall. LOWER THORAX Partially included lower thoracic wall, lungs, pleural spaces and mediastinum are otherwise without significant incidental findings. Procedure Note José Antonio Lew MD - 04/08/2025 For Patients: As a result of the 21st Century Cures Act, medical imagingexams and procedure reports are released immediately into your electronicmedical record. You may view this report before your referring provider.If you have questions, please contact your health care provider. INDICATION: hx pseudocyst. tapped and now VPS externalized. (Sic) COMPARISON: Prior studies dated 04/05/2025, 04/04/2025 and 05/28/2024 TECHNIQUE: CT of the abdomen and pelvis without intravenous contrast. Please notethat all CT scans at this facility use dose modulation, iterativereconstruction, and/or weight-based dosing when appropriate to reduceradiation dose to as low as reasonably achievable. FINDINGS: The study is performed without intravenous contrast. This limits thesensitivity of the exam for the detection bowel pathology, focal lesionsof the abdominopelvic viscera and vascular pathology including significantvascular stenosis, occlusion and dissection. ABDOMEN Peritoneal Cavity: The patient is status post externalization of the leftventriculoperitoneal shunt catheter associated with a left inframesocolicperitoneal encapsulated pseudocyst. The pseudocyst is smaller in theinterval since 04/05/2025, measuring approximately 12 cm in greatest axialdimension (series 3; image 69), compared to 16.6 cm on 04/05/2025 whenmeasured in similar fashion (2; 69). A small adjacent loculated element inthe right inframesocolic space is also decreased in size compared to theprior exam, measuring 2.4 cm currently (3; 76) compared to 3.2 cmpreviously (2; 82). There is persistent mass effect associated with thiscyst which displaces the small bowel in the left upper quadrant. Liver: Normal contour and attenuation. No significant focal lesion. Nointrahepatic biliary ductal dilatation. Gallbladder: Contracted. Vicarious excretion of contrast material is noted within thegallbladder lumen in the interval since the prior contrast-enhanced studyof 04/05/2025. no pericholecystic inflammatory changes. Normal common ductcaliber. Pancreas: Normal contour and attenuation. No peripancreatic inflammatory changes. Nosignificant focal lesion. Normal main duct caliber. Spleen: Not enlarged. No significant focal lesion. Adrenal Glands: Symmetrical adrenal glands. No significant focal lesion. Kidneys: Normal bilateral renal attenuation. No significant focal lesion. Nonephrolith. No dilatation of the intrarenal collecting systems. Noureteral stone. Nondilated ureters. Gastrointestinal tract: The previously noted gastric tube on the 04/05/2025 exam has been removed.Persistent fat stranding surrounding the second segment of the duodenalsweep and pancreatic head consistent with paraduodenal pancreatitis.Laboratory correlation is suggested. Differential diagnosticconsiderations include duodenitis. Resolution of previously noted gastricand duodenal distention not as shown on the 04/04/2025 exam. Vascular: Normal outer wall to outer wall abdominal aortic caliber. Patency andluminal caliber of the abdominopelvic arterial and venous vasculaturecannot be assessed on this noncontrast study. Retroperitoneum: No adenopathy. PELVIS No bladder lesion is identified. No significant incidental findings related to the prostate or seminalvesicles. No significant ascites. No adenopathy. SKELETON AND BODY WALL Externalization of the left ventriculoperitoneal shunt catheter in theinterval since the prior study of 04/05/2025. No other acute orsignificant incidental/interval findings. In-situ abandoned shunt catheterin the superficial soft tissues of the right anterior thoracic wall. LOWER THORAX Partially included lower thoracic wall, lungs, pleural spaces andmediastinum are otherwise without significant incidental findings. IMPRESSION: 1. Decrease in the size of a left inframesocolic multiloculatedencapsulated CSF pseudocyst extending across the midline status postexternalization of the left ventriculoperitoneal shunt catheter in theinterval since the 04/05/2025 exam. Please see measurements in the body ofthe report above. There is persistent mass effect associated with thepseudocyst, specifically displacement of the surrounding small bowel inthe left upper quadrant. 2. Persistent fat stranding surrounding the second segment of the duodenalsweep and pancreatic head. Differential diagnostic considerations includeduodenitis and pancreatitis. Laboratory correlation is suggested. ConsiderGastroenterology consultation as clinically appropriate. 3. Interval removal of the gastric tube compared to 04/05/2025 withresolution of gastric and duodenal distention as demonstrated on the04/04/2025 exam. Please note that all CT scans at this facility use dose modulation,iterative reconstruction, and/or weight-based dosing when appropriate toreduce radiation dose to as low as reasonably achievable. Dictated by José Antonio Lew MD @ 04/08/2025 1:46:33 PM (Electronically Signed) us Johny Whitehead NP CT Final Res ult * CWS PATH REVIEW BODY FLUID (04/08/2025 10:10 AM CDT) PATH COMMENT No atypical or malignant cells. Favor reactive. Reviewed by Dr. April Banegas on 04/09/25 04/09/2025 11:07 AM CDT [facility] Cerebrospinal Fluid CEREBROSPINAL FLUID SPECIMEN / Unknown Non-Blood / Unknown 04/08/2025 10:10 AM CDT 04/08/2025 10:19 AM CDT Johny Whitehead IT RISK AND ASSURANCE MANAGER LABORATORY Final Res ult Performing Organization Address [facility]/ZIP Co de Phone Number [facility] [address] [place] [address], [place] * SPINAL FLUID CULT, STAIN (04/08/2025 10:10 AM CDT) CULTURE No Growth. 04/13/2025 8:03 AM CDT [facility] GRAM STAIN No PMNs 04/13/2025 8:03 AM CDT [facility] GRAM STAIN No RBCs 04/13/2025 8:03 AM CDT [facility] GRAM STAIN No Epithelial cells 04/13/2025 8:03 AM CDT [facility] GRAM STAIN No organisms seen 04/13/2025 8:03 AM CDT [facility] Cerebrospinal Fluid CEREBROSPINAL FLUID SPECIMEN / Unknown Non-Blood / Unknown 04/08/2025 10:10 AM CDT 04/08/2025 10:19 AM CDT Narrative [facility] - 04/13/2025 8:03 AM CDT Johny Whitehead IT RISK AND ASSURANCE MANAGER MICROBIOLOGY Final Res ult Performing Organization Address City/[facility]/ZIP Co de Phone Number [facility] [address] [place], [place] [id number], [place] * (ABNORMAL) CSF CELL COUNT/DIFF (04/08/2025 10:10 AM CDT) TUBE NUMBER One 04/09/2025 11:07 AM CDT [facility] CSF COLOR Colorless Colorless 04/09/2025 11:07 AM CDT [facility] CSF CLARITY Clear Clear 04/09/2025 11:07 AM CDT [facility] TOTAL NUCLEATED CELLS, CSF 1 <6 /cu mm 04/09/2025 11:07 AM CDT [facility] RED BLOOD COUNT, CSF 2 <10 /cu mm 04/09/2025 11:07 AM CDT [facility] % NEUTROPHILS, CSF 0 <7 % 04/09/2025 11:07 AM CDT [facility] % LYMPHOCYTES, CSF 21(L) 40 - 80 % 04/09/2025 11:07 AM CDT [facility] % MONO/MACRO, CSF 79(H) 16 - 56 % 04/09/2025 11:07 AM CDT [facility] Cerebrospinal Fluid CEREBROSPINAL FLUID SPECIMEN / Unknown Non-Blood / Unknown 04/08/2025 10:10 AM CDT 04/08/2025 10:19 AM CDT Narrative [facility] - 04/09/2025 11:07 AM CDT Differential held for pathology review. Johny Whitehead IT RISK AND ASSURANCE MANAGER BODY FLUID Final Res ult Performing Organization Address City/[facility]/ZIP Co de Phone Number [facility] [address] [place] [address], [place] * (ABNORMAL) PROTEIN CSF,TOTAL (04/08/2025 10:10 AM CDT) PROTEIN CSF,TOTAL 9(L) 15 - 45 mg/dL 04/08/2025 11:11 AM CDT [facility] Cerebrospinal Fluid CEREBROSPINAL FLUID SPECIMEN / Unknown Non-Blood / Unknown 04/08/2025 10:10 AM CDT 04/08/2025 10:19 AM CDT Johny Whitehead IT RISK AND ASSURANCE MANAGER BODY FLUID Final Res ult [facility] [address] [place] [address], [place] * (ABNORMAL) GLUCOSE,CSF (04/08/2025 10:10 AM CDT) GLUCOSE,CSF 89(H) 40 - 70 mg/dL 04/08/2025 11:12 AM CDT [facility] Cerebrospinal Fluid CEREBROSPINAL FLUID SPECIMEN / Unknown Non-Blood / Unknown 04/08/2025 10:10 AM CDT 04/08/2025 10:19 AM CDT Johny Whitehead IT RISK AND ASSURANCE MANAGER BODY FLUID Final Res ult [facility] [address] [place] [id number], * HCHG TUBE PR1, HCHG STYLET PR1 (04/07/2025 2:32 PM CDT) Narrative Valentino Villarreal CRNA - 04/07/2025 2:32 PM CDT Valentino Villarreal CRNA 04/07/2025 2:35 PM Procedure: ETT Patient location during procedure: OR ETT Properties Mask Ventilation: easy Final Technique: direct laryngoscopy Type: straight Location: oral Cuffed: yes Tube Size: 7.5 mm Stylet: yes Laryngoscope Blade: Beyer Blade Size: 2 Cormack-Lehane Grade View: 1 Insertion Attempts: 1 Placement Verification: auscultation, end tidal CO2 and symmetrical chest wall movement Assessment: pharynx clear, atraumatic and dentition unchanged Secured at: 21 Measured From: lips Bite Block: oral airway Difficulty: 0 (not difficult) Catalina Verma MD ANESTHESIA PX NOTE ORDERABL ES Final Result * SCAN CORRESP-IMAGING (04/07/2025 12:26 PM CDT) Anatomical Region Laterality Modality Other Narrative 04/07/2025 12:26 PM CDT Ordered by an unspecified provider. Other Clinical Staff OTHER Final Resul t * Platelet count preop (04/07/2025 7:38 AM CDT) PLATELET COUNT 156 140 - 440 thou/cu mm 04/07/2025 8:30 AM CDT [facility] MPV 11.0 6.5 - 11.0 fL 04/07/2025 8:30 AM CDT [facility] Blood BLOOD SPECIMEN / Unknown Venipuncture / Unknown 04/07/2025 7:38 AM CDT 04/07/2025 8:06 AM CDT Alba Munoz MD HEMATOLOGY Final Res ult Performing Organization Address [facility]/ZIP Co de Phone Number [facility] [address] [place] [address], [place] * WBC AM (04/07/2025 7:38 AM CDT) WHITE BLOOD COUNT 8.3 4.5 - 11.0 thou/cu mm 04/07/2025 8:30 AM CDT [facility] NRBC 0.0 % 04/07/2025 8:30 AM CDT [facility] ABS NRBC 0.0 thou /cu mm 04/07/2025 8:30 AM CDT [facility] Blood BLOOD SPECIMEN / Unknown Venipuncture / Unknown 04/07/2025 7:38 AM CDT 04/07/2025 8:06 AM CDT Alba Munoz MD HEMATOLOGY Final Res ult Performing Organization Address [facility]/ZIP Co de Phone Number [facility] [address] [place] [address], [place] * (ABNORMAL) Hemoglobin AM (04/07/2025 7:38 AM CDT) HEMOGLOBIN 12.9(L) 13.5 - 17.5 g/dL 04/07/2025 8:30 AM CDT [facility] MCV 90 80 - 100 fL 04/07/2025 8:30 AM CDT [facility] Blood BLOOD SPECIMEN / Unknown Venipuncture / Unknown 04/07/2025 7:38 AM CDT 04/07/2025 8:06 AM CDT Alba Munoz MD HEMATOLOGY Final Res ult Performing Organization Address City/State/[facility] Co de Phone Number [facility] [address] [place] [phone], [place] * SODIUM (04/07/2025 7:38 AM CDT) SODIUM 141 136 - 145 mmol/L 04/07/2025 8:32 AM CDT [facility] Blood BLOOD SPECIMEN / Unknown Venipuncture / Unknown 04/07/2025 7:38 AM CDT 04/07/2025 8:06 AM CDT Alba Munoz MD CHEMISTRY Final Res ult Performing Organization Address [facility] Co de Phone Number [facility] [address] [place] [address], [place] * POTASSIUM (04/07/2025 7:38 AM CDT) POTASSIUM 3.5 3.5 - 5.1 mmol/L 04/07/2025 8:32 AM CDT [facility] Blood BLOOD SPECIMEN / Unknown Venipuncture / Unknown 04/07/2025 7:38 AM CDT 04/07/2025 8:06 AM CDT Alba Munoz MD CHEMISTRY Final Res ult Performing Organization Address 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 Medications: 1% lidocaine SQ, Sedation: General anesthesia Estimated blood loss: Minimal Complications: no complications noted Technique and findings: The procedure, risks, and alternative therapies were discussed in detail, and written informed consent was obtained. A time out was performed to verify correct patient and procedure. sedation The patient's pulse oximetry, EKG and blood pressure were monitored by the interventional radiology nurse at all times. A time out was performed to verify correct patient and procedure. The patient was placed supine on the CT table. Limited CT of the abdomen and pelvis was performed. The biopsy site was localized. A ron was made on the patient's skin. The site was prepped and draped in the usual sterile fashion. All elements of maximum sterile barrier technique were used. Soft tissues were anesthetized with 1% lidocaine. Under intermittent CT guidance, 5 Sinhala used was advanced into the ventral abdominal pseudocyst. The inner stylette was removed and approximately 820 mL of fluid was aspirated with a specimen sent to the laboratory for analysis. The site was covered with a sterile dressing. Completion CT was performed which demonstrated reduction in the size of the pseudocyst. The patient tolerated the procedure well without immediate postprocedural complication. Impression: Successful CT-guided aspiration of a ventriculoperitoneal shunt catheter pseudocyst with specimen sent to the laboratory for analysis. Please contact me with any questions. Christian Isbell MD Vascular & Interventional Radiology [facility] [phone] MD CT Final Res ult * [facility] MIS[facility]ENDOUT (04/06/2025 12:22 PM CDT) [facility] MISCELLANEOUS SEND OUT COMMENT 04/09/2025 12:07 AM CDT [facility] ([facility]) Comment: Test Ordered: [id number] Lipase, Fluid Lipase, Fluid 4 U/L 01 INTERPRETIVE INFORMATION: Lipase, Fluid For information on body fluid reference ranges and/or interpretive guidance visit [email or web address] This test was developed and its performance characteristics determined by [employer] It has not been cleared or approved by the [place] Food and Drug Administration. This test was performed in a CLIA certified laboratory and is intended for clinical purposes. Other PERITONEAL FLUID SPECIMEN / Unknown Non-Blood / Unknown 04/06/2025 12:22 PM CDT 04/06/2025 1:23 PM CDT Narrative [facility] ([facility]) - 04/09/2025 12:07 AM CDT Performed At: [address] [place], [place] [id number] Arsenio Dominguez Ph:[phone] Performed At: [address] [id number] Eli Salcedo MD Ph:[phone] Alba Munoz MD LABORATORY Final Res ult Performing Organization Address City/[facility]/ZIP Co de Phone Number [facility] ([facility]) [address] [place] [id number], [place] * BILIRUBIN TOTAL BODY FLUID (04/06/2025 12:22 PM CDT) Bilirubin, Total <0.2 mg/dL 04/09/20 12:07 AM CDT [facility] ([facility]) Comment: INTERPRETIVE INFORMATION: Bilirubin, Total, Body Fluid For information on body fluid reference ranges and/or interpretive guidance visit [email or web address] This test was developed and its performance characteristics determined by [employer] It has not been cleared or approved by the [place] Food and Drug Administration. This test was performed in a CLIA certified laboratory and is intended for clinical purposes. Body Fluid PERITONEAL FLUID SPECIMEN / Unknown Non-Blood / Unknown 04/06/2025 12:22 PM CDT 04/06/2025 1:23 PM CDT Narrative [facility] ([facility]) - 04/09/2025 12:07 AM CDT Performed at: 01 - [address] [place] [id number] Zookeeper: Alex Dominguez, Phone: [phone] Alba Munoz MD BODY FLUID Final Res ult Performing Organization Address City/[facility]/ZIP Co de Phone Number [facility] ([facility]) [address] [place] [address], [place] * MSO-Miscellaneous Send Out (04/06/2025 12:22 PM CDT) TEST NAME Lipase, fluid 04/06/2025 2:01 PM CDT [facility] SOURCE peritoneal fluid 04/06/20 2:01 PM CDT [facility] PERFORMING LAB [place] via [facility] 03/26 2:01 PM CDT [facility] REFERRAL LAB TEST # [id number] 04/06/2025 2:01 PM CDT [facility] IS THIS A [facility] TEST? Yes, See [facility] Miscellaneous Sendout result 04/06/2025 2:01 PM CDT [facility] Is this a [facility] Test? No 04/06/2025 2:01 PM CDT [facility] Other PERITONEAL FLUID SPECIMEN / Unknown Non-Blood / Unknown 04/06/2025 12:22 PM CDT 04/06/2025 1:23 PM CDT us Alba Munoz MD SEND OUTS Final Res ult [facility] [address] [place] [address], [place] * Body Fluid Culture and Stain (04/06/2025 12:22 PM CDT) CULTURE No Growth. 04/12/2025 8:55 AM CDT [facility] GRAM STAIN No Epithelial cells 04/12/2025 8:55 AM CDT [facility] GRAM STAIN No PMNs 04/12/2025 8:55 AM CDT [facility] GRAM STAIN No RBCs 04/12/2025 8:55 AM CDT [facility] GRAM STAIN No organisms seen 04/12/2025 8:55 AM CDT [facility] Body Fluid PERITONEAL FLUID SPECIMEN / Unknown Non-Blood / Unknown 04/06/2025 12:22 PM CDT 04/06/2025 12:43 PM CDT Alba Munoz MD MICROBIOLOGY Final Res ult [facility] [address] [place] [address], [place] * PATH Non ABRASIVE MIXER HELPER CYTOLOGY (04/06/2025 12:22 PM CDT) Case Report Medical Cytology Report Case: [id number] Authorizing Provider: Alba Munoz MD Collected: 04/06/2025 1222 Ordering Location: [facility] Received: 04/06/2025 1243 [facility] Pathologist: Fartun Gonzalez MD Specimen: Peritoneal Fluid 04/08/2025 12:51 PM CDT [facility] Final Diagnosis PERITONEAL FLUID, CYTOLOGIC MATERIAL: Negative for malignancy in this sample 04/08/2025 12:51 PM CDT [facility] at 1251 CDT Comment A GMS was ordered on this specimen at the time of the procedure. According to lab protocol, the stain has NOT been performed based on clinical history and microscopic evaluation. If GMS testing is still desired please contact the laboratory at [phone]. 04/08/2025 12:51 PM CDT [facility] Clinical Information Abdominal fluid collection 04/08/2025 12:51 PM CDT [facility] Gross Description A) SOURCE: Peritoneal Fluid The specimen consists of 20 cc of light yellow hazy fluid from which the following is prepared: -1 Air-dried slide for DiffQuik stain -1 ThinPrep slide for Papanicolaou Stain -1 Cell block slide A2 Cell block material was placed in formalin at 0740 on 04/07/25 and fixed in formalin at least 6 hours and no more than 72 hours. 04/08/2025 12:51 PM CDT [facility] Microscopic Description Specimen adequacy: Adequate for interpretation. All slides were reviewed. The microscopic appearance substantiates the diagnosis. 04/08/2025 12:51 PM CDT [facility] Additional Information Cytology is screened at [facility] - [address], [place] [address] and [facility] - [address], [place] [address] and [facility] - [address] [place] [address] Interpreted at [facility] - [address], [place] [address] 04/08/2025 12:51 PM CDT [facility] Other PERITONEAL FLUID SPECIMEN / Unknown Non-Blood / Unknown 04/06/2025 12:22 PM CDT 04/06/2025 12:43 PM CDT us Alba Munoz MD PATHOLOGY/CYTOLOGY Final Result Performing Organization Address City/State/[facility] Co de Phone Number [facility] [address] [place] [address], * Body Fluid Cell Count and Differential (04/06/2025 12:22 PM CDT) BODY FLUID SOURCE Peritoneal Fluid 04/06/2025 2:51 PM CDT [facility] BODY FLUID COLOR Yellow 04/06/2025 2:51 PM CDT [facility] BODY FLUID CLARITY Clear 04/06/2025 2:51 PM CDT [facility] TOTAL NUCLEATED CELLS, BF 16 /cu mm 04/06/2025 2:51 PM CDT [facility] RED BLOOD COUNT, BODY FLUID <2,000 /cu mm 04/06/2025 2:51 PM CDT [facility] % NEUTROPHILS, BODY FLUID 0 % 04/06/2025 2:51 PM CDT [facility] % LYMPHOCYTES, BODY FLUID 10 % 04/06/2025 2:51 PM CDT [facility] % MONO/MACRO, BODY FLUID 87 % 04/06/2025 2:51 PM CDT [facility] % BASOPHILS, BODY FLUID 1 % 04/06/2025 2:51 PM CDT [facility] % MESOTHELIAL CELLS, BODY FLUID 2 % 04/06/2025 2:51 PM CDT [facility] Body Fluid PERITONEAL FLUID SPECIMEN / Unknown Non-Blood / Unknown 04/06/2025 12:22 PM CDT 04/06/2025 12:43 PM CDT Narrative [facility] - 04/06/2025 2:51 PM CDT TO ORDER BODY FLUID CULTURES, USE; [id number] BODY FLUID CULTURE, STAIN us Alba Munoz MD BODY FLUID Final Res ult [facility] [address] [place] [address], * Protein, Body Fluid (04/06/2025 12:22 PM CDT) SPECIMEN SOURCE Peritoneal 04/06/2025 2:29 PM CDT [facility] PROTEIN,BODY FLUID 1.2 g/dL 04/06/2025 2:29 PM CDT [facility] Comment:No Reference Range D efined. Body Fluid PERITONEAL FLUID SPECIMEN / Unknown Non-Blood / Unknown 04/06/2025 12:22 PM CDT 04/06/2025 12:43 PM CDT Narrative [facility] - 04/06/2025 2:29 PM CDT Pleural: Pleural fluid transudate total protein to serum total protein ratio typically </=0.5. Pleural fluid exudate total protein to serum total protein ratio typically >0.5. Peritoneal: Ascitic fluid total protein is a reflection of serum protein concentration. May be useful in differentiating secondary bacterial peritonitis from spontaneous bacterial peritonitis when at least two of the three criteria are met in ascetic fluid: Total Protein > 1.0 g/dL Glucose < 50 mg/dL LDH > Upper reference limit for serum Ascitic fluid total protein may be elevated > 2.5 g/dL in patients with high albumin gradient ascites caused by heart failure. Test developed & performance characteristics determined by [facility], [place] consistent with CLIA requirements. Not cleared or approved by [place] FDA. Alba Munoz MD BODY FLUID Final Res ult Performing Organization Address [facility] Co de Phone Number [facility] [address] [place] [address], [place] * Amylase, Body Fluid (04/06/2025 12:22 PM CDT) SPECIMEN SOURCE Peritoneal 04/06/2025 2:29 PM CDT [facility] AMYLASE,BODY FLUID 13 IU/L 04/06/2025 2:29 PM CDT [facility] Comment:No Reference Range D efined. Body Fluid PERITONEAL FLUID SPECIMEN / Unknown Non-Blood / Unknown 04/06/2025 12:22 PM CDT 04/06/2025 12:43 PM CDT Narrative [facility] - 04/06/2025 2:29 PM CDT Peritoneal: Amylase activity in non-pancreatic peritoneal fluid is approximately equal to the serum amylase activity. Ascites associated with pancreatitis typically has amylase activity at least 5- fold greater than serum. Pleural: Amylase activity in pleural fluid is typically less than the upper limit of normal serumm amylase with fluid to serum amylase ratio <1.0 Test developed & performance characteristics determined by [facility] consistent with CLIA requirements. Not cleared or approved by [place] FDA. Alba Munoz MD BODY FLUID Final Res ult Performing Organization Address [facility] Co de Phone Number [facility] [address] [place] [address], [place] * Anaerobic Culture (04/06/2025 12:22 PM CDT) CULTURE No anaerobes isolated 04/11/2025 8:29 AM CDT [facility] Body Fluid PERITONEAL FLUID SPECIMEN / Unknown Non-Blood / Unknown 04/06/2025 12:22 PM CDT 04/06/2025 12:43 PM CDT Alba Munoz MD MICROBIOLOGY Final Res ult Performing Organization Address [facility] Co de Phone Number [facility] [address] [place] [id number], [place] * Albumin, Body Fluid (04/06/2025 12:22 PM CDT) SPECIMEN SOURCE Peritoneal 04/06/2025 2:29 PM CDT [facility] ALBUMIN,BODY FLUID 0.9 g/dL 04/06/2025 2:29 PM CDT [facility] Comment:No Reference Range D efined. Body Fluid PERITONEAL FLUID SPECIMEN / Unknown Non-Blood / Unknown 04/06/2025 12:22 PM CDT 04/06/2025 12:[address] [facility] - 04/06/2025 2:29 PM CDT Peritoneal: SAAG >/= 1.1 g/dL indicates portal Hypertension. Pleural: SEAG > 1.2 g/dL is consistent with a transudative process and may be more accurate in patients receiving diuretic therapy. Test developed & performance characteristics determined by [place], [place] consistent with CLIA requirements. Not cleared or approved by [place] FDA. Alba Munoz MD BODY FLUID Final Res ult Performing Organization Address [facility] Co de Phone Number [facility] [address] [address], [place] * HCHG TUBE PR1, HCHG STYLET PR1 (04/06/2025 11:59 AM CDT) Narrative Bienvenido Estevez CRNA - 04/06/2025 11:59 AM CDT Bienvenido Estevez CRNA 04/06/2025 12:00 PM Procedure: ETT Patient location during procedure: OR ETT Properties Mask Ventilation: easy Final Technique: direct laryngoscopy and cricoid pressure Type: straight Location: oral Cuffed: yes Tube Size: 7.5 mm Stylet: yes Laryngoscope Blade: Mac Blade Size: 3 Cormack-Lehane Grade View: 1 Insertion Attempts: 1 Placement Verification: auscultation, end tidal CO2 and symmetrical chest wall movement Assessment: pharynx clear, atraumatic and dentition unchanged Secured at: 22 Measured From: lips Difficulty: 0 (not difficult) Melba Medrano MD ANESTHESIA PX NOTE ORDE RABLES Final Result * (ABNORMAL) PROTIME-INR (04/06/2025 11:01 AM CDT) INR 1.4(H) <1.3 04/06/2025 11:27 AM CDT [facility] PROTIME 15.9(H) 10.6 - 12.4 sec 04/06/2025 11:27 AM CDT [facility] Blood BLOOD SPECIMEN / Unknown Venipuncture / Unknown 04/06/2025 11:01 AM CDT 04/06/2025 11:10 AM CDT Narrative [facility] - 04/06/2025 11:27 AM CDT Therapeutic Range 2.0-3.0 for most anticoagulated patients 2.5-3.5 or 4.0 for high risk patients The INR is only used for patients on stable oral anticoagulant therapy. It makes no significant contribution to the diagnosis or treatment of patients whose Protime is prolonged for other reasons. INR results are increased when heparin levels exceed 1.0 U/mL, which corresponds to an aPTT >125 seconds if the patient is on UFH. Alba Munoz MD HEMATOLOGY Final Res ult [facility] [address] [place] [address], * Blood culture (04/06/2025 11:00 AM CDT) Only the most recent of2 resultswithin the time period is included. CULTURE No Growth. 04/11/2025 12:05 PM CDT [facility] Blood BLOOD SPECIMEN / Unknown Venipuncture / Unknown 04/06/2025 11:00 AM CDT 04/06/2025 11:10 AM CDT Narrative [facility] - 04/11/2025 12:05 PM CDT Low volume blood culture received; possible false negative culture. us Alba Munoz MD MICROBIOLOGY Final Res ult [facility] [address] [place] [address], [place] * XR ABDOMEN 1 VIEW PORTABLE (04/06/2025 1:15 AM CDT) Only the most recent of2 resultswithin the time period is included. Anatomical Region Laterality Modality Abdomen Digital Radiogra phy 04/06/2025 1:39 AM CDT Impressions 04/06/2025 1:39 AM CDT NG tube tip projects over the distal stomach. Nondistended bowel loops. Dictated by Nelson Burton MD @ 04/06/2025 1:39:00 AM (Electronically Signed) Narrative 04/06/2025 1:39 AM CDT For Patients: As a result of the Cures Act, medical imaging exams and procedure reports are released immediately into your electronic medical record. You may view this report before your referring provider. If you have questions, please contact your health care provider. INDICATION: Tube placement. TECHNIQUE: Abdomen 1 view. COMPARISON: CT abdomen and pelvis 04/05/2025. Procedure Note Nelson Burton MD - 04/06/2025 For Patients: As a result of the Cures Act, medical imagingexams and procedure reports are released immediately into your electronicmedical record. You may view this report before your referring provider.If you have questions, please contact your health care provider. INDICATION: Tube placement. TECHNIQUE: Abdomen 1 view. COMPARISON: CT abdomen and pelvis 04/05/2025. IMPRESSION: NG tube tip projects over the distal stomach. Nondistended bowel loops. Dictated by Nelson Burton MD @ 04/06/2025 1:39:00 AM (Electronically Signed) us Shahana Schaefer MD GENERAL IMAGING Final Result * CT ABDOMEN PELVIS W (04/05/2025 1:03 PM CDT) Anatomical Region Laterality Modality Abdomen, Pelvis, AORTA, LIVER, SPLEEN Computed Tomography 04/05/2025 2:28 PM CDT Impressions 04/05/2025 2:28 PM CDT 1. Interval placement of a nasogastric tube with significant improvement in partial distention of the stomach compared to the examination on 04/04/2025. Persistent abnormal thickening of a decompressed gastric outlet and proximal duodenum as evidence for inflammation. No gross evidence of a small-bowel obstruction. Recommend correlation with patient`s history. Consider upper endoscopy for further evaluation. 2. Grossly unchanged appearance of the large complex cystic collection within the left abdomen encompassing a GROUP MANAGER shunt catheter. 3. Heterogeneity and stranding of the head and uncinate pancreas, likely reactive pancreatitis. Please note that all CT scans at this facility use dose modulation, iterative reconstruction, and/or weight-based dosing when appropriate to reduce radiation dose to as low as reasonably achievable. Dictated by Timothy Hays MD @ 04/05/2025 2:28:14 PM (Electronically Signed) Narrative 04/05/2025 2:28 PM CDT For Patients: As a result of the Century Cures Act, medical imaging exams and procedure reports are released immediately into your electronic medical record. You may view this report before your referring provider. If you have questions, please contact your health care provider. INDICATION: Bowel obstruction suspected. TECHNIQUE: CT abdomen and pelvis acquired with 100 cc Omnipaque 350 IV contrast. COMPARISON: 04/04/2025. FINDINGS: The lung bases are clear. The liver is unchanged in appearance. No definite liver lesion is seen. The gallbladder is partially distended. Cholelithiasis is present. No CT evidence of acute cholecystitis. No gross biliary ductal dilatation. Spleen is unchanged. The pancreas is unchanged. There is heterogeneity of the pancreatic head and uncinate with stranding extending into the pancreatic duodenal groove. This may represent inflammation. No main ductal dilatation. The adrenal glands are unremarkable. The kidneys are symmetric in enhancement. No hydronephrosis or significant perinephric stranding. The urinary bladder is partially distended. There has been interval placement of a nasogastric tube terminating within the stomach. Interval decrease in size of now a partially distended stomach which was markedly distended on the prior examination. There is indeterminate high density material noted within the distal stomach which has a slightly different appearance compared to the prior examination and likely ingested. There is indeterminate thickening of the mid and distal duodenum likely representing duodenitis. The bowel is displaced by the large cystic mass within the upper and mid left abdomen. There is motion of 5 extreme the proximal jejunum within the upper abdomen which appears to be nondilated in improved caliber compared to the prior. A few prominent small bowel loops noted underlying the cystic mass appears slightly improved in caliber as well. No definitive evidence of a small-bowel obstruction. The colon is partially displaced and nondilated. Again noted is the large cystic mass within the upper abdomen encompassing the patient`s GROUP MANAGER shunt catheter. This has a slightly different configuration compared to the prior examination overall not definitively changed. Mild mesenteric edema. Ascites noted within right lower quadrant. No gross free air. No retroperitoneal lymphadenopathy. Aorta is nonaneurysmal. Bone windows demonstrate no acute fracture Procedure Note Timothy Hays MD - 04/05/2025 For Patients: As a result of the Cures Act, medical imagingexams and procedure reports are released immediately into your electronicmedical record. You may view this report before your referring provider.If you have questions, please contact your health care provider. INDICATION: Bowel obstruction suspected. TECHNIQUE: CT abdomen and pelvis acquired with 100 cc Omnipaque 350 IV contrast. COMPARISON: 04/04/2025. FINDINGS: The lung bases are clear. The liver is unchanged in appearance. No definite liver lesion is seen.The gallbladder is partially distended. Cholelithiasis is present. No CTevidence of acute cholecystitis. No gross biliary ductal dilatation.Spleen is unchanged. The pancreas is unchanged. There is heterogeneity ofthe pancreatic head and uncinate with stranding extending into thepancreatic duodenal groove. This may represent inflammation. No mainductal dilatation. The adrenal glands are unremarkable. The kidneys aresymmetric in enhancement. No hydronephrosis or significant perinephricstranding. The urinary bladder is partially distended. There has been interval placement of a nasogastric tube terminating withinthe stomach. Interval decrease in size of now a partially distendedstomach which was markedly distended on the prior examination. There isindeterminate high density material noted within the distal stomach whichhas a slightly different appearance compared to the prior examination andlikely ingested. There is indeterminate thickening of the mid and distalduodenum likely representing duodenitis. The bowel is displaced by thelarge cystic mass within the upper and mid left abdomen. There is motionof 5 extreme the proximal jejunum within the upper abdomen which appearsto be nondilated in improved caliber compared to the prior. A fewprominent small bowel loops noted underlying the cystic mass appearsslightly improved in caliber as well. No definitive evidence of asmall-bowel obstruction. The colon is partially displaced and nondilated. Again noted is the large cystic mass within the upper abdomen encompassingthe patient`s GROUP MANAGER shunt catheter. This has a slightly differentconfiguration compared to the prior examination overall not definitivelychanged. Mild mesenteric edema. Ascites noted within right lower quadrant.No gross free air. No retroperitoneal lymphadenopathy. Aorta is nonaneurysmal. Bone windows demonstrate no acute fracture IMPRESSION: 1. Interval placement of a nasogastric tube with significant improvementin partial distention of the stomach compared to the examination on04/04/2025. Persistent abnormal thickening of a decompressed gastricoutlet and proximal duodenum as evidence for inflammation. No grossevidence of a small-bowel obstruction. Recommend correlation withpatient`s history. Consider upper endoscopy for further evaluation. 2. Grossly unchanged appearance of the large complex cystic collectionwithin the left abdomen encompassing a GROUP MANAGER shunt catheter. 3. Heterogeneity and stranding of the head and uncinate pancreas, likelyreactive pancreatitis. Please note that all CT scans at this facility use dose modulation,iterative reconstruction, and/or weight-based dosing when appropriate toreduce radiation dose to as low as reasonably achievable. Dictated by Timothy Hays MD @ 04/05/2025 2:28:14 PM (Electronically Signed) Luis Nj DO CT Final Resul t * Lactate STAT (venous) (04/05/2025 3:34 AM CDT) LACTATE,VENOUS 1.6 0.5 - 2.0 mmol/L 04/05/2025 4:03 AM CDT [facility] Blood BLOOD SPECIMEN / Unknown Non-Lab Venipuncture / Unknown 04/05/2025 3:34 AM CDT 04/05/2025 3:42 AM CDT Luis Nj DO CHEMISTRY Final Resul t Performing Organization Address City/[facility] Co de Phone Number [facility] [address] [place] [address], * (ABNORMAL) LIPASE (04/05/2025 3:34 AM CDT) LIPASE 475.0(H) 13.0 - 60.0 IU/L 04/06/2025 9:47 AM CDT [facility] Blood BLOOD SPECIMEN / Unknown Non-Lab Venipuncture / Unknown 04/05/2025 3:34 AM CDT 04/05/2025 3:42 AM CDT Narinder Hernandez MD CHEMISTRY Final Result Performing Organization Address [facility] Co de Phone Number [facility] [address] [place] [address], * HEPATIC FUNCTION PANEL (04/05/2025 3:34 AM CDT) ALBUMIN 4.4 4.0 - 4.9 g/dL 04/06/2025 9:36 AM CDT [facility] PROTEIN,TOTAL 7.6 6.0 - 8.0 g/dL 04/06/2025 9:36 AM CDT [facility] BILIRUBIN,TOTAL 0.4 0.0 - 1.2 mg/dL 04/06/2025 9:36 AM CDT [facility] BILIRUBIN,DIRECT 0.2 0.0 - 0.2 mg/dL 04/06/2025 9:36 AM CDT [facility] BILIRUBIN,INDIRE CT 0.2 0.2 - 0.8 mg/dL 04/06/2025 9:36 AM CDT [facility] ALK PHOSPHATASE 76 40 - 129 IU/L 04/06/2025 9:36 AM CDT [facility] ALT (SGPT) 22 10 - 50 IU/L 04/06/2025 9:36 AM CDT [facility] AST (SGOT) 29 10 - 50 IU/L 04/06/2025 9:36 AM CDT [facility] Blood BLOOD SPECIMEN / Unknown Non-Lab Venipuncture / Unknown 04/05/2025 3:34 AM CDT 04/05/2025 3:42 AM CDT Narinder Hernandez MD CHEMISTRY Final Result [facility] [address] [place] [address], [place] * SCAN-CARDIAC STRIP (04/05/2025 12:00 AM CDT) Narrative 04/05/2025 12:00 AM CDT Ordered by an unspecified provider. us Other Clinical Staff OTHER Final Resul t * SCAN-CARDIAC STRIP (04/05/2025 12:00 AM CDT) Narrative 04/05/2025 12:00 AM CDT Ordered by an unspecified provider. us Other Clinical Staff OTHER Final Resul t * SCAN-CARDIAC STRIP (04/05/2025 12:00 AM CDT) Narrative 04/05/2025 12:00 AM CDT Ordered by an unspecified provider. us Other Clinical Staff OTHER Final Resul t * SCAN-CT INTERPRETATION (04/04/2025 12:00 AM CDT) Anatomical Region Laterality Modality Other us Scanner OTHER Final Result * LC HCV ANTIBODY RFX TO QUANT PCR (02/01/2023 11:40 AM CDT) HCV Ab Non Reactive Non Reactive 02/04/2023 7:17 AM CDT [facility] Blood BLOOD SPECIMEN / Unknown Butterfly / Unknown 02/01/2023 11:40 AM CDT 02/01/2023 11:45 AM CDT [facility] ([facility]) - 02/04/2023 7:17 AM CDT Performed at: [address] [place] [id number] Zookeeper: Kevan Benitez MD, Phone: [phone] us Joshua Wilde MD LABORATORY Final Result Performing Organization Address City/[facility]/ZIP Co de Phone Number [facility] ([facility]) [address] [place] [address] * HIV-1/O/2, 4TH GENERATION (02/01/2023 11:40 AM CDT) [facility] HIV Scr 4th Gen Non Reactive Non Reactive 02/04/2023 5:13 AM CDT [facility] ([facility]) Comment: HIV Negative HIV-1/HIV-2 antibodies and HIV-1 p24 antigen were NOT detected. There is no laboratory evidence of HIV infection. Blood BLOOD SPECIMEN / Unknown Butterfly / Unknown 02/01/2023 11:40 AM CDT 02/01/2023 11:45 AM CDT [facility] ([facility]) - 02/04/2023 5:13 AM CDT Performed at: [address] [place] [address] [id number] Zookeeper: Kevan Benitez MD, Phone: [phone] us Joshua Wilde MD LABORATORY Final Result Performing Organization Address City/[facility]/ZIP Co de Phone Number [facility] ([facility]) [address] [place] [address] from Last 3 Months or Most Recently Relevant to Health Maintenance Insurance [place] [address] Advance Directives * Full Code (Latest Code Status on File) Date Activated Date Inactivated Comments 04/05/2025 2:50 AM 04/16/2025 12:47 PM Question Answer Comments Code Status Discussion: Reviewed Preferences * Full Code Date Activated Date Inactivated Comments 05/27/2024 11:30 AM 05/31/2024 3:40 PM Question Answer Comments Code Status Discussion: Reviewed Preferences * Full Code Date Activated Date Inactivated Comments 03/11/2024 7:17 AM 03/11/2024 4:14 PM Question Answer Comments Code Status Discussion: Reviewed Preferences Care Teams Doctor Of Podiatry Relationship Specialty Start Date End Date Joshua Wilde MD [address] [place] [address] PCP - General Family Practice 12/16/16
--- OUTSIDE RECORDS SUMMARY | 2025-04-18 22:32 | XMS_ITS | Patient Health Record ---
Author Organization [facility] Address [address] [place] [address] Care Team Providers Care Shipping Receiving Manager Name Role Phone Aldo MONTANA, Tanya Primary Care Provider Wendy MONTANA, SANDEE Unavailable Kuldip MONTANA, [facility] Unavailable [phone] Reason For Referral No Information Social History Social History PSA Social History Social Info Question Answer Notes SMOKING STATUS 13Y AND OLDER Are you a: Non-Smoker Education: Is the Child in School? Yes What Grade? 7th Additional Details Category Social Info Options Details PSA Social History Child Lives At: Home Child Lives With: Mother,Other Day Care No Siblings 3 Alcohol/Drugs? No Activities / Interests? 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
[2025-04-18 22:41] VITALS: BP 119/83; PULSE 77; RESP 16; TEMP 36.1; O2SAT 94
== END 2025-04-19 00:14 | disposition home or self-care (01) ==
LOC: ED 04-19 00:05
PROVIDERS: Emergency Provider Family Medicine; PCP Family Medicine
DX: Z53.21 Procedure and treatment not carried out due to patient leaving prior to being seen by health care provider (principal)